=== PATIENT | male | born 1985 | race Caucasian/White ===

== ENCOUNTER 2021-06-06 11:31 | Emergency (ER) | payer OTHER, SELFPAY ==
[2021-06-06 12:32] VITALS: BP 121/76; PULSE 58; RESP 18; TEMP 36.6; O2SAT 96; BMI 22.4
[2021-06-06 12:59] LABS: Basophils Percent Auto 0.4 % (0-2); Eosinophils Percent Auto 0.5 % (0-4); Hematocrit 46.5 % (42.0-52.0); Hemoglobin 16.2 g/dl (14.0-18.0); Imm Gran Abs Auto 0.02 X10*3/uL (0.00-0.03); Imm Gran Pct Auto 0.3 % (0.0-0.4); Lymphocytes Absolute Auto 2.2 X10*3/uL (1.2-4.9); Lymphocytes Percent Auto 30.4 % (20-40); MANUAL DIFF FLAG NO; Mean Corpuscular HGB Conc 34.8 g/dl (31.0-36.0); Mean Corpuscular Hemoglobin 32.9 pg (27.0-33.0); Mean Corpuscular Volume 94.3 fL (80.0-98.0); Monocytes Absolute Auto 0.4 X10*3/uL (0.1-1.2); Monocytes Percent Auto 5.9 % (2-11); Neutrophils Absolute Auto 4.6 x10*3/uL (2.0-8.3); Neutrophils Percent Auto 62.5 % (45-73); Platelet Count 224 X10*3/uL (160-400); Red Blood Count 4.93 X10*6/uL (4.60-5.80); White Blood Count 7.3 X10*3/uL (4.8-10.8)
[2021-06-06 13:00] LABS: Appearance Urine CLEAR; Color Urine YELLOW; Glucose Urine UA NEG (NEG); Leukocyte Esterase Urine NEG (NEG); Nitrite Urine NEG (NEG); Urine Blood NEG (NEG); Urine Ketones NEG (NEG); Urine Protein NEG (NEG-TRACE)
[2021-06-06 13:16] LABS: Alanine Aminotransferase 57 U/L (0-40); Albumin Level 4.4 g/dL (3.5-5.0); Alkaline Phosphatase 67 U/L (39-117); Anion Gap 10 (12-20); Aspartate Amino Transferase 23 U/L (5-37); Bilirubin Total 0.7 mg/dL (0.0-1.0); Blood Urea Nitrogen 13 mg/dL (9-16); Calcium 9.5 mg/dL (8.4-10.2); Carbon Dioxide 30 mmol/L (22-29); Chloride 104 mmol/L (96-108); Creatinine Clr Calc Pharmacy 108.1; Estimated Glomerular Filt Rate > 60; Glucose Random 92 mg/dL (60-115); Lipase 23 U/L (8-78); Potassium 4.3 mmol/L (3.3-5.1); Sodium 140 mmol/L (135-145); Total Protein 6.8 g/dL (6.5-8.0)
--- NOTE | 2021-06-06 14:28 | ED.ABDPAIN ---
HPI - Abdominal Pain General Chief Complaint: Abdominal Pain Stated Complaint: R side abd pain Time Seen by Provider: 06/06/21 14:20 Source: patient Mode of arrival: ambulatory Limitations: no limitations History of Present Illness HPI narrative: 35-year-old male presents to the emergency room after having 1 week of right sided abdominal pain. He denies any urinary symptoms any falls or injuries he denies any surgeries in the past. He states he went to the walk-in clinic and was sent here. He states the pain has been constant it feels like herself after getting massage 1 week ago. He denies having this problem in the past. He states he has had normal appetite eating drinking having regular bowel movements. MD elicited complaint: abdominal pain Pertinent past history: none Related Data Allergies Allergy/AdvReac Type Severity Reaction Status Date / Time No Known Allergies Allergy Verified 06/06/21 12:32 Review of Systems Review of Systems Review of systems: General: Patient denies any fever chills recent illness or falls Musculoskeletal: Denies back pain or body aches or other injuries HEENT: denies headache, runny nose, ear pain Respiratory: denies shortness of breath, cough Cardiovascular: no chest pain or palpitations : denies dysuria, frequency Abdomen: no nausea vomiting denies abdominal pain Extremities: no swelling, no pain Skin: no diaphoresis Yes all other systems are reviewed and are negative Physical Exam Vital Signs: Vital Signs: Last Vital Signs Temp 97.9 F 06/06/21 12:32 Pulse 58 06/06/21 12:32 Resp 18 06/06/21 12:32 BP 121/76 06/06/21 12:32 Pulse Ox 96 06/06/21 12:32 BMI result Body Mass Index 22.4 General: Well-appearing well-nourished in no signs of distress HEENT: Normocephalic atraumatic Neck: No signs of JVD, no masses no tenderness or lymphadenopathy Cardiovascular: Regular rate and rhythm Respiratory: Clear to auscultation bilaterally Abdomen: Soft nontender no masses negative psoas sign no tenderness at McBurney's point Extremities: Normal pedal pulses no signs of edema Skin: Dry warm no rashes Back: No tenderness full ROM MDM - Abdominal Pain MDM Narrative Medical decision making narrative: Patient with abdominal pain I am unable to reproduce the pain or make it worse patient states his condition of crampy pain he is not taking for it. He has normal labs I offered the patient over for CT scan he states he feels like that is not warranted and feels comfortable going home. Differential Diagnosis Differential diagnosis: Likely abdominal pain Lab Data Result diagrams: 06/06/21 12:53 06/06/21 12:53 Labs: Lab Results 06/06/21 06/06/21 06/06/21 Range/Units 12:53 12:53 12:53 WBC 7.3 (4.8-10.8) X10*3/uL RBC 4.93 (4.60-5.80) X10*6/uL Hgb 16.2 (14.0-18.0) g/dl Hct 46.5 (42.0-52.0) % MCV 94.3 (80.0-98.0) fL MCH 32.9 (27.0-33.0) pg MCHC 34.8 (31.0-36.0) g/dl RDW 13.0 (11.0-16.0) % Plt Count 224 (160-400) X10*3/uL MPV 10.0 (9.4-12.4) fL Immature Gran % (Auto) 0.3 (0.0-0.4) % Neut % (Auto) 62.5 (45-73) % Lymph % (Auto) 30.4 (20-40) % [place] % (Auto) 5.9 (2-11) % Eos % (Auto) 0.5 (0-4) % Baso % (Auto) 0.4 (0-2) % Lymph # (Auto) 2.2 (1.2-4.9) X10*3/uL [place] # (Auto) 0.4 (0.1-1.2) X10*3/uL Eos # (Auto) 0.0 (0.0-0.4) X10*3/uL Baso # (Auto) 0.0 (0.0-0.2) X10*3/uL Abs Immat Gran (auto) 0.02 (0.00-0.03) X10*3/uL Absolute Neuts (auto) 4.6 (2.0-8.3) x10*3/uL Absolute Nucleated RBC 0.000 (0.0-0.012) X10*3/uL Nucleated RBC % (auto) 0.0 (0.0-0.2) /100WBC Sodium 140 (135-145) mmol/L Potassium 4.3 (3.3-5.1) mmol/L Chloride 104 (96-108) mmol/L Carbon Dioxide 30 H (22-29) mmol/L Anion Gap 10 L (12-20) BUN 13 (9-16) mg/dL Creatinine 1.06 (0.5-1.4) mg/dL Estim Creat Clear Calc 108.1 Estimated GFR > 60 Random Glucose 92 (60-115) mg/dL Calcium 9.5 (8.4-10.2) mg/dL Total Bilirubin 0.7 (0.0-1.0) mg/dL AST 23 (5-37) U/L ALT 57 H (0-40) U/L Alkaline Phosphatase 67 (39-117) U/L Total Protein 6.8 (6.5-8.0) g/dL Albumin 4.4 (3.5-5.0) g/dL Lipase 23 (8-78) U/L Urine Color YELLOW Urine Appearance CLEAR Urine pH 7.0 (5.0-8.0) Ur Specific [place] 1.010 (1.005-1.025) Urine Protein NEG (NEG-TRACE) MG/DL Urine Glucose (UA) NEG (NEG) MG/DL Urine Ketones NEG (NEG) MG/DL Urine Blood NEG (NEG) Urine Nitrite NEG (NEG) Ur Leukocyte Esterase NEG (NEG) Discharge Plan Discharge Clinical Impression: Abdominal pain Patient Disposition: Home, Self-Care Instructions: Abdominal Pain (ED) Additional Instructions: Please call follow-up with her doctor if you have worsening pain or any other concerns please do not hesitate to come back to the emergency department.
== END 2021-06-06 15:13 | disposition home or self-care (01) ==
LOC: HO.ED 14:42
PROVIDERS: Emergency Provider Student in an Organized Health Care Education/Training Program; PCP Internal Medicine
DX: R10.9 Unspecified abdominal pain (principal)
CPT/HCPCS: 36415; 80053; 81003; 83690; 85025; 99282; 99283

== ENCOUNTER → 2022-11-05 13:46 | Outpatient (BNVA) | payer OTHER, SELFPAY | PROVIDERS: PCP Internal Medicine; Visit Provider Internal Medicine Cardiovascular Disease | DX: R01.1 Cardiac murmur, unspecified (principal) | CPT/HCPCS: 93005 ==

== ENCOUNTER → 2022-11-25 14:54 | Outpatient (REF) | payer OTHER, SELFPAY ==
--- NOTE | 2022-11-25 14:59 | CA_ITS ---
Transthoracic Echocardiogram Patient (Last, First, Middle): Gerson Christian R Gender: Male Date of : 1985 Age: 37 Procedure Date: 11/25/2022 Procedure Type: Transthoracic Echocardiogram Location: OP Height: 187.96 cm Weight: 77.11 kg BSA: 2.03 m2 Heart Rate: 54 bpm BP: 110 / 75 mmHg Ostomy Rn: LILLIANA Referring MD: Mitch Ruiz MD Symptoms: R01.1 - Cardiac murmur, unspecified Study Quality: Fair ECG Rhythm: Bradycardia Conclusions: - The left ventricular systolic function is normal. The calculated ejection fraction is 60% by biplane method. - There is a bicuspid aortic valve. There is mild aortic valve stenosis. - There is mild dilatation of the ascending aorta measuring 4.30 cm. Findings Left Ventricle Normal left ventricular cavity size. There is normal left ventricular wall thickness. The left ventricular systolic function is normal. The calculated ejection fraction is 60% by biplane method. There is no evidence of regional wall motion abnormalities. Diastolic function is normal for age. Right Ventricle Normal right ventricular cavity size and systolic function. Atria Both atria are normal in size. Aortic Valve There is a bicuspid aortic valve. There is mild aortic valve stenosis. There is no aortic valve regurgitation. Mitral Valve The mitral valve appears normal. There is trace mitral valve regurgitation. There is no mitral valve stenosis. Pulmonic Valve There is trace pulmonic valve regurgitation. Tricuspid Valve Normal tricuspid valve structure. There is trace tricuspid valve regurgitation. There is no evidence of pulmonary hypertension. Great Vessels The aortic arch is normal in size. There is mild dilatation of the ascending aorta measuring 4.30 cm. Venous The inferior vena cava is mildly dilated and collapses greater than 50% with inspiration. Pericardium/Pleural There is no evidence of pericardial effusion. Prior Study Comparison No prior study available for comparison. Measurements 2D Linear Measurements IVSd: 0.79 0.6-0.9/0.6-1.0 cm LVIDd: 4.83 3.9-5.3/4.2-5.9 cm LVIDd Index: 2.38 2.4-3.2/2.2-3.1 cm/m2 LVIDs: 3.42 2.0-3.6 cm LVPWd: 0.85 0.7-1.1 cm LA Diam: 3.40 2.7-3.8/3.0-4.0 cm LAIDs Index: 1.67 1.5-2.3 cm/m2 LV Mass: 163.84 67-162/88-224 g LV Mass Index: 80.71 43-95/49-115 g/m2 LVOT Diam: 1.90 3.0+(-)1.3 cm 2D Systolic Function EF 4C: 58.10 >55% EF 2C: 61.10 >55% EF BiP: 60.30 >55% Mitral Valve MV Pk E: 0.64 MV PK A: 0.70 MV Decel Time: 206.00 E/A: 0.90 E'Lateral: 10.60 E'Medial: 8.05 E/E' Med: 7.90 E/E' Lat: 6.00 PHT: 60.00 MVA PHT: 3.67 Decel [place]: 3.11 Aortic Valve AoV Pk Garrett: 2.24 AoV Mn Garrett: 1.63 AoV VTI: 0.53 AoV Pk Grad: 20.00 Aov Mn Grad: 12.00 ROXY Cont.VTI: 1.22 LVOT LVOT Pk Garrett: 1.01 LVOT Mn Garrett: 0.73 LVOT VTI: 0.23 LVOT Pk Grad: 4.00 LVOT Mn Grad: 2.00 LVOT Diam: 1.90 LVOT Area: 2.84 Diastolic Function MV Pk E: 0.64 MV Pk A: 0.70 E/A: 0.90 E'Medial: 8.05 E/E' Med: 7.90 E' Laterial: 10.60 E/E' Lat: 6.00 Right Ventricle TAPSE (mm): 27.70 TVS' Garrett: 12.50 Tricuspid Valve TR Pk Garrett: 1.71 TR Pk Grad: 12.00 RA Press: 8.00 RVSP: 20.00 Great Vessels Aorta Sinus of Valsalva: 3.10 2.0-3.5 cm Ao Asc: 4.30 2.1-3.4 cm Ao Arch: 3.00 Pulmonary Valve PV Pk Garrett: 1.44 Peak PV Grad: 8.00 Updated in Other Vendor System with Status of Final Conner Underwood MD electronically signed on 11/26/2022 12:17:25 PM with status of Final
== END ==
LOC: HO.CARD 14:54
PROVIDERS: PCP Internal Medicine; Visit Provider Internal Medicine Cardiovascular Disease
DX: R01.1 Cardiac murmur, unspecified (principal)
CPT/HCPCS: 93306

== ENCOUNTER 2022-12-24 07:39 | Outpatient (REF) | payer OTHER, SELFPAY ==
--- NOTE | ~2022-12-24 | CT_ITS ---
EXAMINATION: CT ANGIOGRAM CHEST CLINICAL INFORMATION: Ascending aortic aneurysm COMPARISON: None. TECHNIQUE: Multiple axial images were obtained through the chest after the administration of 70 mL of intravenous Omnipaque 350. Images were evaluated on independent dedicated 3-D workstation and 3-D images were reconstructed with concurrent radiologist supervision and subsequently interpreted. This CT examination was performed using dose optimization techniques as appropriate, variously including the following: *Automated exposure control *Adjustment of mA and/or kV according to patient size (this includes techniques or standardized protocols for targeted exams where dose is matched to indication/reason for exam; i.e. extremities or head) *Use of iterative reconstruction technique DLP: 157 mGy-cm FINDINGS: VASCULAR FINDINGS: Heart: Normal in size. Bicuspid aortic valve. Coronary artery calcifications not present. 4 vessel arch. Aorta: Measurement of the ascending aorta somewhat limited due to patient artifact. Within the nonartifactual segment of the ascending aorta, at the level of the main pulmonary artery, the ascending aortic diameter is 3.7 x 3.5 cm. Aortic arch is approximately 2.2 cm. The descending thoracic aortic diameter is 1.6 cm. No dissection or penetrating atheromatous ulcer. NONVASCULAR FINDINGS: Thyroid Gland: The visualized thyroid gland is normal. Lymph Nodes: No supraclavicular, axillary, mediastinal or hilar lymphadenopathy is identified. Airways: The trachea and central bronchi are normal. Lungs: No airspace consolidation. No suspicious nodules or masses. Pleura: No pleural effusion. No pneumothorax. Upper Abdomen: The visualized upper abdomen is unremarkable. Soft Tissues/Musculoskeletal: No acute fracture or focal osseous lesion. CT/CT angio chest aorta IMPRESSION: 1. Borderline ascending aortic aneurysm. 2. Bicuspid aortic valve. Normal aortic diameters (in millimeters) Ascending aorta: 31+0.16 x age. Descending aorta: 21+0.16 x age. Reference: [employer] Cardiovascular J 2005; 40 (3): 175-178 Fleischner guidelines were followed.
[2022-12-24] MEDS: iohexoL 350 MG/ML 100 ML INFUS..BTL IV (08:46)
== END 2022-12-24 07:40 | disposition home or self-care (01) ==
LOC: HO.CT 07:39
PROVIDERS: PCP Internal Medicine; Visit Provider Internal Medicine Cardiovascular Disease
DX: I71.20 Thoracic aortic aneurysm, without rupture, unspecified (principal)
CPT/HCPCS: 71275; Q9967

== ENCOUNTER → 2023-12-10 07:54 | Outpatient (REF) | payer OTHER, SELFPAY ==
--- NOTE | 2023-12-10 07:57 | CA_ITS ---
Transthoracic Echocardiogram Patient (Last, First, Middle): Gerson Christian R Gender: Male Date of : 1985 Age: 38 Procedure Date: 12/10/2023 Procedure Type: Transthoracic Echocardiogram Location: OP Height: 185.42 cm Weight: 79.38 kg BSA: 2.03 m2 Heart Rate: bpm BP: 106 / 70 mmHg Metal Hardener: BILL Referring MD: Mitch Ruiz MD Symptoms: I71.20 - Thoracic aortic aneurysm, without rupture, unspecified Study Quality: Fair Conclusions: - 1. Normal LV ejection fraction of 60 65% 2. Bicuspid aortic valve with [id number] aortic stenosis 3. Normal RV systolic pressure 4. Mildly dilated ascending aorta at 4.3 cm 5. No gross pericardial effusion Findings Left Ventricle Normal left ventricular size, thickness, and systolic function. The visually estimated ejection fraction is between 60-65%. Spectral Doppler is indicative of a normal filling pattern. Right Ventricle Normal right ventricular cavity size and systolic function. Atria Both atria are normal in size. Interatrial shunt cannot be excluded. Aortic Valve There is a bicuspid aortic valve. There is mild to moderate aortic valve stenosis. There is no aortic valve regurgitation. Mitral Valve Normal mitral valve structure and function. There is trace mitral valve regurgitation. There is no mitral valve stenosis. Pulmonic Valve The pulmonic valve is likely normal. Tricuspid Valve Normal tricuspid valve structure. There is trace tricuspid valve regurgitation. The right ventricular systolic pressure is normal. The right ventricular systolic pressure is 17 mmHg. Normal right atrial pressure. There is no evidence of pulmonary hypertension. Great Vessels The pulmonary artery was not well visualized. There is mild dilatation of the ascending aorta measuring 4.30 cm. Venous The inferior vena cava is normal in size and collapses greater than 50% with inspiration. Pericardium/Pleural There is no evidence of pericardial effusion. Prior Study Comparison Changes noted compared to prior study dated: 11/25/2022. Aortic stenosis is marginally worse Measurements 2D Linear Measurements IVSd: 0.80 0.6-0.9/0.6-1.0 cm LVIDd: 4.48 3.9-5.3/4.2-5.9 cm LVIDd Index: 2.21 2.4-3.2/2.2-3.1 cm/m2 LVIDs: 2.95 2.0-3.6 cm LVPWd: 0.90 0.7-1.1 cm LA Diam: 3.20 2.7-3.8/3.0-4.0 cm LAIDs Index: 1.58 1.5-2.3 cm/m2 LV Mass: 151.36 67-162/88-224 g LV Mass Index: 74.56 43-95/49-115 g/m2 LVOT Diam: 2.00 3.0+(-)1.3 cm 2D Systolic Function EF 4C: 66.70 >55% EF 2C: 62.80 >55% EF BiP: 64.30 >55% Mitral Valve MV Pk E: 0.57 MV PK A: 0.53 MV Decel Time: 318.00 E/A: 1.10 E'Lateral: 11.40 E'Medial: 7.40 E/E' Med: 7.60 E/E' Lat: 5.00 PHT: 93.00 MVA PHT: 2.37 Decel [place]: 1.78 Aortic Valve AoV Pk Garrett: 2.34 AoV Mn Garrett: 1.65 AoV VTI: 0.53 AoV Pk Grad: 22.00 Aov Mn Grad: 13.00 ROXY Cont.VTI: 1.31 LVOT LVOT Pk Garrett: 1.06 LVOT Mn Garrett: 0.68 LVOT VTI: 0.22 LVOT Pk Grad: 4.00 LVOT Mn Grad: 2.00 LVOT Diam: 2.00 LVOT Area: 3.14 Diastolic Function MV Pk E: 0.57 MV Pk A: 0.53 E/A: 1.10 E'Medial: 7.40 E/E' Med: 7.60 E' Laterial: 11.40 E/E' Lat: 5.00 Right Ventricle TAPSE (mm): 24.00 TVS' Garrett: 11.30 Tricuspid Valve TR Pk Garrett: 1.51 TR Pk Grad: 9.00 RA Press: 8.00 RVSP: 17.00 Great Vessels Aorta Ao Asc: 4.30 2.1-3.4 cm Ao Arch: 2.60 Updated in Other Vendor System with Status of Final Mitch Ruiz MD electronically signed on 12/10/2023 9:43:14 AM with status of Final
== END ==
LOC: HO.CARD 07:54
PROVIDERS: PCP Internal Medicine; Visit Provider Internal Medicine Cardiovascular Disease
DX: I71.20 Thoracic aortic aneurysm, without rupture, unspecified (principal)
CPT/HCPCS: 93306

== ENCOUNTER → 2023-12-10 07:57 | Outpatient (BNV) | payer OTHER, SELFPAY | PROVIDERS: PCP Internal Medicine; Visit Provider Internal Medicine Cardiovascular Disease | DX: Q23.0 Congenital stenosis of aortic valve (principal) | CPT/HCPCS: 93303; 93320; 93325 ==

== ENCOUNTER 2024-08-08 09:51 | Emergency (ER) | payer OTHER, SELFPAY ==
--- NOTE | ~2024-08-08 | CT_ITS ---
CLINICAL HISTORY: R ABD groin pain CT ABDOMEN AND PELVIS WITHOUT CONTRAST Comparison: None Findings: The lung bases are clear. Small irregular dysplastic right kidney with compensatory hypertrophy of the left kidney. No hydronephrosis, significant perinephric edema or urolithiasis. Gallbladder is contracted. No large calcified gallstone. No acute abnormalities in the remaining unenhanced solid organs. No AAA. No bowel obstruction, pneumoperitoneum, or pneumatosis. No ascites or significant mesenteric edema. No significant paracolic edema. Pelvic contents unremarkable. Normal appendix. No acute fracture. There is a nonspecific 2.4 cm lucent lesion in the left acetabulum with thin well defined sclerotic borders and overall nonaggressive appearance. IMPRESSION: 1. No obstructive or acute inflammatory changes in the gastrointestinal and genitourinary tracts. 2. No urolithiasis. Atrophic dysplastic right kidney. This document has been electronically signed by: Millicent Whitman DO on 08/08/2024 13:21:32
[2024-08-08 10:06] VITALS: BP 128/80; PULSE 83; RESP 20; TEMP 36.8; O2SAT 99; BMI 25.0
[2024-08-08 10:33] LABS: MANUAL DIFF FLAG NO
[2024-08-08 10:34] LABS: Basophils Percent Auto 0.5 % (0-2); Eosinophils Absolute Auto 0.1 X10*3/uL (0.0-0.4); Hematocrit 46.4 % (42.0-52.0); Hemoglobin 16.7 g/dl (14.0-18.0); Imm Gran Abs Auto 0.02 X10*3/uL (0.00-0.03); Imm Gran Pct Auto 0.2 % (0.0-0.4); Lymphocytes Absolute Auto 2.6 X10*3/uL (1.2-4.9); Lymphocytes Percent Auto 30.5 % (20-40); Mean Corpuscular Hemoglobin 33.4 pg (27.0-33.0); Mean Corpuscular Volume 92.8 fL (80.0-98.0); Mean Platelet Volume 10.3 fL (9.4-12.4); Monocytes Absolute Auto 0.6 X10*3/uL (0.1-1.2); Monocytes Percent Auto 7.1 % (2-11); Neutrophils Absolute Auto 5.1 x10*3/uL (2.0-8.3); Neutrophils Percent Auto 60.7 % (45-73); Platelet Count 237 X10*3/uL (160-400); Red Cell Distribution Width 13.1 % (11.0-16.0); White Blood Count 8.4 X10*3/uL (4.8-10.8)
[2024-08-08 10:35] LABS: Appearance Urine Clear; Color Urine Dark Yellow; Glucose Urine UA Negative (Negative); Leukocyte Esterase Urine Negative (Negative); Nitrite Urine Negative (Negative); Urine Blood Negative (Negative); Urine Ketones Trace mg/dL (Negative); Urine Protein Negative (Neg-Trace)
[2024-08-08 10:51] LABS: Alanine Aminotransferase 17 U/L (0-40); Albumin Level 4.3 g/dL (3.5-5.0); Alkaline Phosphatase 72 U/L (39-117); Anion Gap 13 (12-20); Aspartate Amino Transferase 17 U/L (5-37); Bilirubin Direct 0.1 mg/dL (0.0-0.5); Bilirubin Total 0.4 mg/dL (0.0-1.0); Blood Urea Nitrogen 18 mg/dL (9-16); Carbon Dioxide 26 mmol/L (22-29); Chloride 108 mmol/L (96-108); Creatinine Clr Calc Pharmacy 110.9; Estimated Glomerular Filt Rate > 60; Glucose Random 116 mg/dL (60-115); Lipase 189 U/L (8-78); Potassium 4.6 mmol/L (3.3-5.1); Sodium 142 mmol/L (135-145); Total Protein 7.5 g/dL (6.5-8.0)
--- OUTSIDE RECORDS SUMMARY | 2024-08-08 11:08 | XMS_ITS | Clinical Summary ---
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 Family History Medical History Relation Name Comments No Known Problems Brother No Known Problems Father No Known Problems Mother Relation Name Status Comments Brother Alive Father Alive Mother Alive Social History Tobacco Use Types Packs/Day Years Used Date Smoking Tobacco: Every Day Cigarettes 1 21 Started: 07/21/2003 Smokeless Tobacco: Never Alcohol Use Standard Drinks/Week Comments Yes 0 (1 standard drink = 0.6 oz pur e alcohol) Sex and Gender Information Value Date Recorded Sex Assigned at Not on file Legal Sex Male 12:44 PM EST Gender Identity Not on file Sexual Orientation Not on file Obstetrics History Plan of Treatment Health Maintenance Due Date Last Done Comments DTaP,Tdap,and Td Vaccines (1 - Tdap) 2003 Hepatitis B Vaccines (1 of 3 - 19+ 3-dose series) 2003 COVID-19 Vaccine (2023-2 5 season) 2024 Influenza Vaccine (#1) 2024 HIB Vaccines Aged Out No longer eligi ble based on patient's age to complete this topic HPV Vaccines Aged Out No longer eligi ble based on patient's age to complete this topic Hepatitis A Vaccines Aged Out No long er eligible based on patient's age to complete this topic IPV Vaccines Aged Out No longer eligi ble based on patient's age to complete this topic MMR Vaccines Aged Out No longer eligi ble based on patient's age to complete this topic Meningococcal ACWY Vaccine Aged Out N o longer eligible based on patient's age to complete this topic Meningococcal B Vacine Aged Out No lo nger eligible based on patient's age to complete this topic Pneumococcal Vaccine: Pediat rics (0 to 5 Years) and At-Risk Patients (6 to 64 Years) Aged Out No longer eligible b ased on patient's age to complete this topic RSV Immunization Patients Un viv 20 months Aged Out No longer eligible b ased on patient's age to complete this topic Varicella Vaccines Aged Out No longer eligible based on patient's age to complete this topic Care Teams Director Of Logistics Relationship Specialty Start Date End Date Mick Rebolledo MD [address] [address] PCP - General Internal Medicine 01/25/20
--- OUTSIDE RECORDS SUMMARY | 2024-08-08 11:08 | XMS_ITS | Encounter Summary ---
Author Organization [facility] Address [address] [place] [address] Care Team Providers Care House Shorer Name Role Phone Mick Rebolledo MD Primary Care Provider [phone] Encounter Details Date Type Department Care Team (Late st Contact Info) Description 08/15/2023 Scanned Document [facility] Department of Internal Medicine [place] [address] [place] [phone] Mick Rebolledo MD [address] [place] [address] Social History Tobacco Use Types Packs/Day Years Used Date Smoking Tobacco: Never Assessed Sex and Gender Information Value Date Recorded Sex Assigned at Male 07/17/2022 4:30 PM EST Gender Identity Male 07/17/2022 4:30 PM EST Sexual Orientation Heterosexual (straight) 07/17 4:30 PM EST documented as of this encounter Plan of Treatment Not on file documented as of this encounter Visit Diagnoses Not on filedocumented in this encounter Care Teams House Shorer Relationship Specialty Start Date End Date Mick Rebolledo MD [address] [place] [address] PCP - General documented as of this encounter
--- OUTSIDE RECORDS SUMMARY | 2024-08-08 11:08 | XMS_ITS | Encounter Summary ---
Author Organization [facility] Address [address] [place] [address] Care Team Providers Care Production Honing Machine Operator Name Role Phone Mick Rebolledo MD Primary Care Provider [phone] Encounter Details Date Type Department Care Team (Late st Contact Info) Description 08/15/2023 Scanned Document [facility] Department of Internal Medicine [place] [address] [place] [address] Mick Rebolledo MD [address] [place] [address] Social History Tobacco Use Types Packs/Day Years [...] on filedocumented in this encounter Care Teams Production Honing Machine Operator Relationship Specialty Start Date End Date Mick Rebolledo MD [address] [place] [address] PCP - General documented as of this encounter
--- OUTSIDE RECORDS SUMMARY | 2024-08-08 11:08 | XMS_ITS | Encounter Summary ---
Author Organization [facility] Address [address] [place] [address] Care Team Providers Care Bi Lead Name Role Phone Mick Rebolledo MD Primary Care Provider [phone] Encounter Details Date Type Department Care Team (Late st Contact Info) Description 07/24/2023 Scanned Document [facility] Department of Internal Medicine [place] [address] [place] [address] Mick Rebolledo MD [address] [place] [address] Social History Tobacco Use Types Packs/Day Years [...] on filedocumented in this encounter Care Teams Bi Lead Relationship Specialty Start Date End Date Mick Rebolledo MD [address] [place] [address] PCP - General documented as of this encounter
--- OUTSIDE RECORDS SUMMARY | 2024-08-08 11:08 | XMS_ITS | Encounter Summary ---
Author Organization [facility] Address [address] [place] [address] Care Team Providers Care Molder Pipe Covering Name Role Phone Mick Rebolledo MD Primary Care Provider [phone] Encounter Details Date Type Department Care Team (Late st Contact Info) Description 12/11/2022 Scanned Document [facility] Department of Internal Medicine [place] [address] [place] [address] Mick Rebolledo MD [address] [place] [address] Social History Tobacco Use Types Packs/Day Years [...] on filedocumented in this encounter Care Teams Molder Pipe Covering Relationship Specialty Start Date End Date Mick Rebolledo MD [address] [place] [address] PCP - General documented as of this encounter
--- OUTSIDE RECORDS SUMMARY | 2024-08-08 11:08 | XMS_ITS | Encounter Summary ---
Author Organization [facility] Address [address] [place] [address] Care Team Providers Care Open Soaper Tender Name Role Phone Mick Rebolledo MD Primary Care Provider [phone] Encounter Details Date Type Department Care Team (Late st Contact Info) Description 08/06/2023 Scanned Document [facility] Department of Internal Medicine [place] [address] [place] [address] Mick Rebolledo MD [address] [place] [address] Social History Tobacco Use Types Packs/Day Years [...] on filedocumented in this encounter Care Teams Open Soaper Tender Relationship Specialty Start Date End Date Mick Rebolledo MD [address] [place] [address] PCP - General documented as of this encounter
--- OUTSIDE RECORDS SUMMARY | 2024-08-08 11:08 | XMS_ITS | Encounter Summary ---
Author Organization [facility] Address [address] [place] [address] Care Team Providers Care Furnace Clerk Name Role Phone Mick Rebolledo MD Primary Care Provider [phone] Encounter Details Date Type Department Care Team (Late st Contact Info) Description 07/29/2023 Scanned Document [facility] Department of Internal Medicine [place] [address] [place] [address] Mick Rebolledo MD [address] [place] [address] Social History Tobacco Use Types Packs/Day Years [...] on filedocumented in this encounter Care Teams Furnace Clerk Relationship Specialty Start Date End Date Mick Rebolledo MD [address] [place] [address] PCP - General documented as of this encounter
--- OUTSIDE RECORDS SUMMARY | 2024-08-08 11:08 | XMS_ITS | Encounter Summary ---
Author Organization [facility] Address [address] [place] [address] Care Team Providers Care Trade Show Manager Name Role Phone Mick Rebolledo MD Primary Care Provider Encounter Details Date Type Department Care Team (Late st Contact Info) Description 12/05/2022 Scanned Document [facility] Department of Internal Medicine [place] [address] [place] [address] Yvette Woods, PIZZ[employer]OOK [address] [place] [id number] Social History Tobacco Use Types Packs/Day Years [...] on filedocumented in this encounter Care Teams Trade Show Manager Relationship Specialty Start Date End Date Mick Rebolledo MD [address] [place] [address] PCP - General documented as of this encounter
--- OUTSIDE RECORDS SUMMARY | 2024-08-08 11:08 | XMS_ITS | Encounter Summary ---
Author Organization [facility] Address [address] [place] [address] Care Team Providers Care Rn Ante Partum Name Role Phone Mick Rebolledo MD Primary Care Provider [phone] Encounter Details Date Type Department Care Team (Late st Contact Info) Description 07/31/2023 Scanned Document [facility] Department of Internal Medicine [place] [address] [place] [address] Mick Rebolledo MD [address] [place] [address] Social History Tobacco Use Types Packs/Day Years [...] on filedocumented in this encounter Care Teams Rn Ante Partum Relationship Specialty Start Date End Date Mick Rebolledo MD [address] [place] [address] PCP - General documented as of this encounter
--- OUTSIDE RECORDS SUMMARY | 2024-08-08 11:08 | XMS_ITS | Clinical Summary ---
Author Organization [facility] Address [address] [place] [address] Care Team Providers Care Nurse Healthcare Manager Name Role Phone Mick Rebolledo MD Primary Care Provider Unavail able Allergies No known active allergies Medications No known medications Active Problems Problem Noted Date Diagnosed Date Synovitis of right ankle 02/03/2020 Pain and swelling of right ankle 01/20/2020 Osteochondral defect of talus 01/20/2020 Right foot pain 07/21/2018 Numbness and tingling of right lower extremity 0 07/21/2018 Family History Medical History Relation Name Comments No Sig Med Hx Brother No Sig Med Hx Father No Sig Med Hx Mother Relation Name Status Comments Brother Alive Father Alive Mother Alive Social History Tobacco Use Types Packs/Day Years Used Date Smoking Tobacco: Every Day Cigarettes 1 Started: 07/21/2003 Smokeless Tobacco: Never Alcohol Use Standard Drinks/Week Comments Yes 0 (1 standard drink = 0.6 oz pur e alcohol) socially Sex and Gender Information Value Date Recorded Sex Assigned at Male 07/21/2018 1:32 PM EST Gender Identity Male 07/21/2018 1:32 PM EST Sexual Orientation Not on file Job Start Date Occupation Industry Not on file Not on file Not on file Last Filed Vital Signs Vital Sign Reading Time Taken Comments Blood Pressure - - Pulse - - Temperature 36.7 ??C (98 ??F) 02/25/2020 8:08 AM EDT Respiratory Rate - - Oxygen Saturation - - Inhaled Oxygen Concentration - - Weight 79.4 kg (175 lb) 02/25/2020 8:08 AM EDT Height 185.4 cm (6' 1 ) 02/25/2020 8:08 AM EDT Body Mass Index 23.09 02/25/2020 8:08 AM EDT Plan of Treatment Health Maintenance Due Date Last Done Comments Hepatitis B Vaccines (1 of 3 - 3-dose series) 1984 Hepatitis C Screening 1984 COVID-19 Vaccine (#1) 1984 Pneumococcal Vaccine (1 of 2 - PCV) 1990 Depression Screening 1996 Preventative Health Evaluation 2002 Tobacco Cessation Counseling 2002 DTap / Tdap / Td (1 - Tdap) 2003 Influenza Vaccine (#1) 2024 RSV Ped < 20 months Aged Out No longe r eligible based on patient's age to complete this topic Care Teams Nurse Healthcare Manager Relationship Specialty Start Date End Date Mick Rebolledo MD PCP - General Internal Medicine 01/25/20
--- OUTSIDE RECORDS SUMMARY | 2024-08-08 11:08 | XMS_ITS | Encounter Summary ---
Author Organization [facility] Address [address] [place] [address] Care Team Providers Care Ophthalmic Surgeon Name Role Phone Mick Rebolledo MD Primary Care Provider [phone] Encounter Details Date Type Department Care Team (Late st Contact Info) Description 07/24/2023 Scanned Document [facility] Department of Internal Medicine [place] [address] [place] [address] Mick Rebolledo MD [address] [place] [address] Social History Tobacco Use Types Packs/Day Years [...] on filedocumented in this encounter Care Teams Ophthalmic Surgeon Relationship Specialty Start Date End Date Mick Rebolledo MD [address] [place] [address] PCP - General documented as of this encounter
--- OUTSIDE RECORDS SUMMARY | 2024-08-08 11:08 | XMS_ITS | Clinical Summary ---
Author Organization [facility] Address [address] [place] [id number] Care Team Providers Care Crane Operator Cab Name Role Phone Mick Rebolledo MD Primary Care Provider [phone] Allergies No known active allergies Medications No known medications Active Problems Problem Noted Date Diagnosed Date Murmur, cardiac 08/13/2022 Vitamin D deficiency 08/09/2022 Chronic back pain 08/09/2022 Family History Medical History Relation Name Comments Cancer Father Relation Name Status Comments Father Social History Tobacco Use Types Packs/Day Years Used Date Smoking Tobacco: Never Assessed Sex and Gender Information Value Date Recorded Sex Assigned at Male 07/17/2022 4:30 PM EST Gender Identity Male 07/17/2022 4:30 PM EST Sexual Orientation Heterosexual (straight) 07/17 4:30 PM EST Last Filed Vital Signs Vital Sign Reading Time Taken Comments Blood Pressure 108/68 07/20/2023 3:50 PM EST Pulse 75 07/20/2023 3:50 PM EST Temperature 36.4 ??C (97.6 ??F) 08/09/2022 10:[address] Respiratory Rate - - Oxygen Saturation 96% 07/20/2023 3:50 PM EST Inhaled Oxygen Concentration - - Weight 85.7 kg (189 lb) 07/20/2023 3:50 PM EST Height 185.4 cm (6' 1 ) 07/20/2023 3:50 PM EST Body Mass Index 24.94 07/20/2023 3:50 PM EST Plan of Treatment Health Maintenance Due Date Last Done Comments Hepatitis C Virus Screening 1984 HIV Screening 1997 DTaP/Tdap/Td Vaccines (1 - Tdap) 2003 Hepatitis B Vaccines (1 of 3 - 19+ 3-dose series) 2003 Pneumococcal Vaccine: Pediat john (0-5 Years) and At-Risk Patients (6 to 49 Years) (1 of 2 - PCV) 2003 Influenza Vaccine 01/01/2024 COVID-19 Vaccine (2023-2 5 season) 2024 HPV Vaccines Aged Out No longer eligi ble based on patient's age to complete this topic Care Teams Crane Operator Cab Relationship Specialty Start Date End Date Mick Rebolledo MD [address] [place] [address] PCP - General
--- OUTSIDE RECORDS SUMMARY | 2024-08-08 11:08 | XMS_ITS | Encounter Summary ---
Author Organization [facility] Address [address] [place] [address] Care Team Providers Care Special Trackwork Blacksmith Name Role Phone Mick Rebolledo MD Primary Care Provider Encounter Details Date Type Department Care Team (Late st Contact Info) Description 09/11/2022 Scanned Document [facility] Department of Internal Medicine [place] [address] [place] [address] Mick Rebolledo MD [address] [place] [address] Social History Tobacco Use Types Packs/Day Years [...] on filedocumented in this encounter Care Teams Special Trackwork Blacksmith Relationship Specialty Start Date End Date Mick Rebolledo MD [address] [place] [address] PCP - General documented as of this encounter
--- OUTSIDE RECORDS SUMMARY | 2024-08-08 11:08 | XMS_ITS ---
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
--- OUTSIDE RECORDS SUMMARY | 2024-08-08 11:08 | XMS_ITS | Encounter Summary ---
Author Organization [facility] Address [address] [place] [address] Care Team Providers Care Society Reporter Name Role Phone Mick Rebolledo MD Primary Care Provider [phone] Encounter Details Date Type Department Care Team (Late st Contact Info) Description 11/01/2022 Scanned Document [facility] Department of Internal Medicine [place] [address] [place] [address] Yvette Woods, COMMUNITY CENTER DIRECTOR [address] [place] [phone] Social History Tobacco Use Types Packs/Day Years [...] on filedocumented in this encounter Care Teams Society Reporter Relationship Specialty Start Date End Date Mick Rebolledo MD [address] [place] [address] PCP - General documented as of this encounter
--- OUTSIDE RECORDS SUMMARY | 2024-08-08 11:08 | XMS_ITS | Encounter Summary ---
Author Organization [facility] Address [address] [place] [address] Care Team Providers Care Supervisor Wool Shearing Name Role Phone Mick Rebolledo MD Primary Care Provider [phone] Encounter Details Date Type Department Care Team (Late st Contact Info) Description 10/10/2022 Scanned Document [facility] Department of Internal Medicine [place] [address] [place] [address] Mick Rebolledo MD [address] [place] [address] Social History Tobacco Use Types Packs/Day Years [...] on filedocumented in this encounter Care Teams Supervisor Wool Shearing Relationship Specialty Start Date End Date Mick Rebolledo MD [address] [place] [address] PCP - General documented as of this encounter
--- OUTSIDE RECORDS SUMMARY | 2024-08-08 11:08 | XMS_ITS | Encounter Summary ---
Author Organization [facility] Address [address] [place] [address] Care Team Providers Care Assistant Prosecuting Attorney Name Role Phone Mick Rebolledo MD Primary Care Provider [phone] Encounter Details Date Type Department Care Team (Late st Contact Info) Description 11/12/2022 Scanned Document [facility] Department of Internal Medicine [place] [address] [place] [address] Yvette Woods, TANGIBLE PERSONAL PROPERTY APPRAISER [address] [place] [phone] Social History Tobacco Use Types Packs/Day Years [...] on filedocumented in this encounter Care Teams Assistant Prosecuting Attorney Relationship Specialty Start Date End Date Mick Rebolledo MD [address] [place] [address] PCP - General documented as of this encounter
--- OUTSIDE RECORDS SUMMARY | 2024-08-08 11:08 | XMS_ITS | Encounter Summary ---
Author Organization [facility] Address [address] [place] [address] Care Team Providers Care Testing Manager Name Role Phone Mick Rebolledo MD Primary Care Provider Encounter Details Date Type Department Care Team (Late st Contact Info) Description 08/06/2023 Scanned Document [facility] Department of Internal Medicine [place] [address] [place] [address] Mick Rebolledo MD [address] [place] [address] Social History Tobacco Use Types Packs/Day Years [...] on filedocumented in this encounter Care Teams Testing Manager Relationship Specialty Start Date End Date Mick Rebolledo MD [address] [place] [address] PCP - General documented as of this encounter
--- NOTE | 2024-08-08 11:43 | ED.ABDPAIN ---
HPI - Abdominal Pain General Chief Complaint: Abdominal Pain Stated Complaint: hip to groin pain Time Seen by Provider: 08/08/24 10:58 Source: patient Mode of arrival: ambulatory Limitations: no limitations History of Present Illness ED Provider: Debi Ryan NP HPI narrative: Patient is a 39-year-old male who presents emergency department for evaluation. He reports over the past few days he has been experiencing right lower quadrant abdominal pain that radiates down into the groin. Has had associated urinary frequency and pressure but denies hematuria. He does admit that he had a recent physical and was told that there was trace blood in his urine though he did not visibly see this to the eye. Does admit that he has experienced a similar pain over the past few months, states it has been intermittent in nature. But over the past few days he has had varying intensity and feeling worse than he has experienced previously. He does admit that he has also experienced right lower back pain intermittently, at times it was radiating to his leg so he assumed this was something muscular. He denies fevers, chills, chest pain, nausea, vomiting, hematemesis, diarrhea, constipation, hematochezia, melena, dysuria. denies testicular pain/urethral discharge or scrotal swelling. Related Data Home Medications ?Medication ?Instructions ?Recorded ?Confirmed No Known Home Meds 11/05/22 11/05/22 Allergies Allergy/AdvReac Type Severity Reaction Status Date / Time No Known Allergies Allergy Verified 08/08/24 10:09 Review of Systems Review of Systems Yes all other systems are reviewed and are negative PMFSH Past Medical History Attestation statement: The following information was validated with the patient. Source: old records reviewed Surgical History Hx of toe surgery Family History Family History Father No problems noted. Mother No problems noted. Social History Social History Patient Tobacco Use Status: Current everyday Tobacco user Advance Directives: No Advance Directives Information Provided: Yes Do you have a plan to hurt others: No Plan Physical Exam ED Vital Signs: Vital Signs - 24 hr 08/08/24 10:06 08/08/24 12:48 Temperature 98.3 F 97.7 F Pulse Rate 83 47 L Respiratory Rate 20 16 Blood Pressure 128/80 99/64 Pulse Oximetry 99 97 Oxygen Delivery Method Room Air Room Air BMI result Body Mass Index 25.0 Appearance: Alert.?Oriented to person, place and time. No acute distress.?Normal affect.?? Neck: Normal inspection.? Neck supple.?? CVS: Heart sounds normal. Normal heart rate and rhythm.? Pulses normal.?? Respiratory: No respiratory distress.? Lung sounds clear to auscultation bilaterally?? Abdomen: Soft with diffuse mild tenderness RLQ ABD. No rebound tenderness at McBurney's point. Negative psoas sign. Negative Rovsing sign. Negative Bell sign. No CVAT. Normoactive bowel sounds. No pulsatile mass.?? Skin: Skin warm and dry.? Normal skin color.? Extremities: No lower extremity edema.? Neuro: Moves all extremities spontaneously. Sensation intact bilaterally. Ambulates with normal steady gait. Course Reevaluation(s) Reevaluation #1: CT of the abdomen and pelvis without evidence of obstructive or inflammatory gastrointestinal or genital urinary tracts. No urolithiasis. 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 Etiology/exact duration of such as unclear. Patient has never had abdominal imaging in the past and notes this has been present previously. He has no impaired renal function. No proteinuria, no microscopic hematuria or infection. Did not feel as though he requires emergent nephrology evaluation. Would recommend follow-up with primary care doctor in assure that they be made aware of findings. Advised to refrain, OTC NSAIDs. Recommend use of acetaminophen, topical lidocaine/Lidoderm patches for pain as needed. Reviewed strict return precautions. All questions answered Medical Decision Making Medical Decision Making MDM Narrative: Patient is a 39-year-old male no reported past medical history who presents emergency department for evaluation of right lower quadrant abdominal pain with associated symptoms as per HPI. Onset has been over the past few days but has experienced similar pain in the past. Although he does admit that it is worse as of recently. On evaluation he has mild tenderness throughout the right lower quadrant, no appreciable masses to suggest a hernia, no rebound tenderness at McBurney's point. Concern for possible nephrolithiasis/ureteral calculi. He is without signs of systemic toxicity, afebrile without tachycardia no hypotension. Rebound tenderness at McBurney's point, negative psoas sign, negative Rovsing sign, lower suspicion for acute appendicitis. Colitis is possible though I suspect less likely given no associated gastrointestinal symptoms but rather symptoms. Obtaining CT of the abdomen and pelvis for further evaluation. Had serum labs obtained prior to my assumption of care CBC is without leukocytosis anemia or thrombocytopenia. No electrolyte derangement. No OK. Normal LFTs, lipase minimally elevated at 189, no upper abdominal pain or tenderness to suggest acute biliary etiology. Urinalysis without evidence of infection or microscopic hematuria. Differential Diagnosis Differential Diagnoses: The differential diagnosis associated with the presentation includes (See narrative above) Admission/Observation Consideration of admission/observation: Escalation of care including admission/observation considered (See narrative above ) Lab Data MDM Lab Attestation statement: I reviewed the patient's lab results. 08/08/24 10:21 08/08/24 10:21 Labs: Lab Results 08/08/24 Range/Units 10:21 WBC 8.4 (4.8-10.8) X10*3/uL RBC 5.00 (4.60-5.80) X10*6/uL Hgb 16.7 (14.0-18.0) g/dl Hct 46.4 (42.0-52.0) % MCV 92.8 (80.0-98.0) fL MCH 33.4 H (27.0-33.0) pg MCHC 36.0 (31.0-36.0) g/dl RDW 13.1 (11.0-16.0) % Plt Count 237 (160-400) X10*3/uL MPV 10.3 (9.4-12.4) fL Immature Gran % (Auto) 0.2 (0.0-0.4) % Neut % (Auto) 60.7 (45-73) % Lymph % (Auto) 30.5 (20-40) % Broome % (Auto) 7.1 (2-11) % Eos % (Auto) 1.0 (0-4) % Baso % (Auto) 0.5 (0-2) % Lymph # (Auto) 2.6 (1.2-4.9) X10*3/uL Broome # (Auto) 0.6 (0.1-1.2) X10*3/uL Eos # (Auto) 0.1 (0.0-0.4) X10*3/uL Baso # (Auto) 0.0 (0.0-0.2) X10*3/uL Abs Immat Gran (auto) 0.02 (0.00-0.03) X10*3/uL Absolute Neuts (auto) 5.1 (2.0-8.3) x10*3/uL Absolute Nucleated RBC 0.000 (0.0-0.012) X10*3/uL Nucleated RBC % (auto) 0.0 (0.0-0.2) /100WBC Sodium 142 (135-145) mmol/L Potassium 4.6 (3.3-5.1) mmol/L Chloride 108 (96-108) mmol/L Carbon Dioxide 26 (22-29) mmol/L Anion Gap 13 (12-20) BUN 18 H (9-16) mg/dL Creatinine 1.00 (0.5-1.4) mg/dL Estim Creat Clear Calc 110.9 Estimated GFR > 60 Random Glucose 116 H (60-115) mg/dL Calcium 9.0 (8.4-10.2) mg/dL Total Bilirubin 0.4 (0.0-1.0) mg/dL Direct Bilirubin 0.1 (0.0-0.5) mg/dL AST 17 (5-37) U/L ALT 17 (0-40) U/L Alkaline Phosphatase 72 (39-117) U/L Total Protein 7.5 (6.5-8.0) g/dL Albumin 4.3 (3.5-5.0) g/dL Lipase 189 H (8-78) U/L Urine Color Dark Yellow Urine Appearance Clear Urine pH 6.0 (5.0-9.0) Ur Specific Carter 1.020 (1.005-1.025) Urine Protein Negative (Neg-Trace) mg/dL Urine Glucose (UA) Negative (Negative) mg/dL Urine Ketones Trace (Negative) mg/dL Urine Blood Negative (Negative) Urine Nitrite Negative (Negative) Ur Leukocyte Esterase Negative (Negative) Radiology Impression Discussion of test interpretation with radiology: I have reviewed the radiologist's reading. Radiologist Impression: IMPRESSION: CT abdomen and pelvis 1. No obstructive or acute inflammatory changes in the gastrointestinal and genitourinary tracts. 2. No urolithiasis. Atrophic dysplastic right kidney. External Record Review External record reviewed: Outpatient record Discharge Plan Discharge Clinical Impression: Abdominal pain, Atrophic kidney Patient Disposition: Home, Self-Care Instructions: Abdominal Pain (ED) Additional Instructions: As discussed, on imaging today there was an incidental finding of the right kidney being atrophied and dysplastic. It is unclear whether this is something you were born with or if this occurred later in life. Reassuringly, your kidney function is normal, your urine testing is free from signs of infection or protein buildup in the urine. I recommend refraining from NSAIDs which are available over the counter including ibuprofen/Motrin/Advil, Aleve/naproxen, aspirin. Establish care with a primary care doctor and be certain that they are aware of these findings. You can take Tylenol 500 mg, 2 tablets (1,000mg) every 4-6 hours as needed for pain, but not to exceed 3 doses daily (3,000mg).? Consider the use of topical Lidoderm patches available [id number] as well to areas pain. IMPRESSION: CT abdomen and pelvis. 1. No obstructive or acute inflammatory changes in the gastrointestinal and genitourinary tracts. 2. No urolithiasis. Atrophic dysplastic right kidney. Prescriptions: No Action No Known Home Meds Referrals: [facility] [Provider Group] [facility] [place] [facility] [place] Group[place] [facility] [Provider Group] Print Language: Vietnamese
[2024-08-08 12:48] VITALS: BP 99/64; PULSE 47; RESP 16; TEMP 36.5; O2SAT 97
[2024-08-08 14:11] VITALS: BP 100/76; PULSE 62; RESP 16; TEMP 36.7; O2SAT 98
== END 2024-08-08 14:16 | disposition home or self-care (01) ==
PROVIDERS: Emergency Provider Emergency Medicine
DX: N26.1 Atrophy of kidney (terminal) (principal); R10.31 Right lower quadrant pain; R35.0 Frequency of micturition; R10.2 Pelvic and perineal pain; F17.210 Nicotine dependence, cigarettes, uncomplicated; Z79.899 Other long term (current) drug therapy
CPT/HCPCS: 36415; 74176; 80048; 80076; 81003; 83690; 85025; 99284

== ENCOUNTER → 2024-08-08 11:52 | Outpatient (BNV) | payer OTHER, SELFPAY | PROVIDERS: Emergency Provider Emergency Medicine; Visit Provider Radiology Diagnostic Radiology | DX: R10.30 Lower abdominal pain, unspecified (principal); N26.1 Atrophy of kidney (terminal) | CPT/HCPCS: 74176 ==

== ENCOUNTER 2024-08-16 14:27 | Outpatient (AMB) | payer OTHER, SELFPAY ==
--- NOTE | 2024-08-16 14:36 | HO.NEPHOV_ITS ---
Vital Signs 08/16/24 14:38 Height 6 ft 1 in Weight 193 lb BMI 25.5 BP 120/72 Blood Pressure Location Rt brachial Position Sitting Pulse 77 Pulse Source Pulse Oximeter Pulse Oximetry (%) 96 Oxygen Delivery Method Room Air Intake Visit Reasons: Referred by [facility] [employer] Consultant Required: No Accompanied by: Self / Same As Patient Allergies No Known Allergies Allergy (Verified 08/16/24 14:40) HPI Comments Details: 39-year-old man referred for atrophic right kidney. About 2 weeks ago he went to the ER because of right-sided lower abdominal pain. During routine evaluation he had a CT scan which revealed atrophy right kidney. No renal stones. No other urogenital abnormalities was noted. Serum creatinine has been normal at 0.8 mg/dL. Urinalysis was benign without any blood or protein. He has a history of bicuspid aortic valve with [id number] stenosis. Seen by Cardiology in 2022 [facility] Surgical History Hx of toe surgery Family History Father No problems noted. Mother No problems noted. Social History Patient Tobacco Use Status: Current everyday Tobacco user Review of Systems Const Denies fever(s) and Denies weight loss Card Denies chest pain Resp Denies cough and Denies hemoptysis GI Denies abdominal pain, Denies diarrhea and Denies nausea Musc Denies back pain Neuro Denies focal weakness Physical Exam Vital Signs: Last Vital Signs Pulse 77 08/16/24 14:38 BP 120/72 08/16/24 14:38 Pulse Ox 96 08/16/24 14:38 Oxygen Delivery Method Room Air 08/16/24 14:38 BMI result Body Mass Index 25.5 Results Reviewed Nephrology Results: Hgb 16.7 g/dl (14.0-18.0) 08/08/24 WBC 8.4 X10*3/uL (4.8-10.8) 08/08/24 Plt Count 237 X10*3/uL (160-400) 08/08/24 Sodium 142 mmol/L (135-145) 08/08/24 Potassium 4.6 mmol/L (3.3-5.1) 08/08/24 Chloride 108 mmol/L (96-108) 08/08/24 Carbon Dioxide 26 mmol/L (22-29) 08/08/24 BUN 18 mg/dL (9-16) H 08/08/24 Creatinine 1.00 mg/dL (0.5-1.4) 08/08/24 Calcium 9.0 mg/dL (8.4-10.2) 08/08/24 Urine Protein Negative mg/dL (Neg-Trace) 08/08/24 Assessment & Plan Assessment & Plan (1) Atrophy of right kidney: Code(s): N26.1 - Atrophy of kidney (terminal) Category: Medical Plan 39-year-old man with atrophic right kidney. No evidence of obstruction. It is unclear if this is congenital. Compensatory hypertrophy of the left kidney Currently renal function is normal. Workup ordered including new nuclear scan Encouraged to stay on low-sodium diet Maintain blood pressure less than 130/80 Increase p.o. fluid intake. Continue to avoid nephrotoxic agents including NSAIDs. Orders: Orders UA and rflx microscopic Today N26.1 - Atrophy of kidney (terminal) Creatinine Urine Today N26.1 - Atrophy of kidney (terminal) Total Protein Urine Random Today N26.1 - Atrophy of kidney (terminal) NM renal flow w pharm int Today N26.1 - Atrophy of kidney (terminal) Coding Level of Care Code New Pt Level 4 (97241) Diagnoses Atrophy of right kidney N26.1
[2024-08-16 14:38] VITALS: BP 120/72; PULSE 77; O2SAT 96; BMI 25.5
--- OUTSIDE RECORDS SUMMARY | 2024-08-16 16:57 | XMS_ITS | Encounter Summary ---
Author Organization [facility] Address [address] [place] [address] Care Team Providers Care Technology Development Intern Name Role Phone Mick Rebolledo MD Primary Care Provider [phone] Encounter Details Date Type Department Care Team (Late st Contact Info) Description 11/01/2022 Scanned Document [facility] Department of Internal Medicine [place] [address] [place] [address] Yvette Woods, CIRCULATION ASSISTANT [address] [place] [phone] Social History Tobacco Use Types Packs/Day Years [...] on filedocumented in this encounter Care Teams Technology Development Intern Relationship Specialty Start Date End Date Mick Rebolledo MD [address] [place] [address] PCP - General documented as of this encounter
--- OUTSIDE RECORDS SUMMARY | 2024-08-16 16:57 | XMS_ITS | Encounter Summary ---
Author Organization [facility] Address [address] [place] [address] Care Team Providers Care Molder Machine Tender Name Role Phone Mick Rebolledo MD Primary Care Provider [phone] Encounter Details Date Type Department Care Team (Late st Contact Info) Description 12/11/2022 Scanned Document [facility] Department of Internal Medicine [place] [address] [place] [address] Mick Rebolledo MD [address] [place] [address] Social History Tobacco Use Types Packs/Day Years [...] filedocumented in this encounter Care Teams Molder Machine Tender Relationship Specialty Start Date End Date Mick Rebolledo MD [address] [place] [address] PCP - General documented as of this encounter
--- OUTSIDE RECORDS SUMMARY | 2024-08-16 16:57 | XMS_ITS | Encounter Summary ---
Author Organization [facility] Address [address] [place] [address] Care Team Providers Care Electronics Mechanic Apprentice Name Role Phone Mick Rebolledo MD Primary Care Provider [phone] Encounter Details Date Type Department Care Team (Late st Contact Info) Description 09/11/2022 Scanned Document [facility] Department of Internal Medicine [place] [address] [place] [address] Mick Rebolledo MD [address] [place] [address] Social History Tobacco Use Types Packs/Day Years [...] on filedocumented in this encounter Care Teams Electronics Mechanic Apprentice Relationship Specialty Start Date End Date Mick Rebolledo MD [address] [place] [address] PCP - General documented as of this encounter
--- OUTSIDE RECORDS SUMMARY | 2024-08-16 16:57 | XMS_ITS | Encounter Summary ---
Author Organization [facility] Address [address] [place] [address] Care Team Providers Care Fence Manufacture Supervisor Name Role Phone Mick Rebolledo MD Primary Care Provider [phone] Encounter Details Date Type Department Care Team (Late st Contact Info) Description 11/12/2022 Scanned Document [facility] Department of Internal Medicine [place] [address] [place] [address] Yvette Woods, PROJECT SURVEYOR [address] [place] [phone] Social History Tobacco Use Types Packs/Day Years [...] on filedocumented in this encounter Care Teams Fence Manufacture Supervisor Relationship Specialty Start Date End Date Mick Rebolledo MD [address] [place] [address] PCP - General documented as of this encounter
--- OUTSIDE RECORDS SUMMARY | 2024-08-16 16:57 | XMS_ITS | Clinical Summary ---
Author Organization [facility] Address [address] [place] [id number] Care Team Providers Care Ground Hel[address] Railway Name Role Phone Mick Rebolledo MD Primary Care Provider [phone] Allergies No known active allergies Medications No [...] age to complete this topic Care Teams Ground [address] Railway Relationship Specialty Start Date End Date Mick Rebolledo MD [address] [place] [address] PCP - General
--- OUTSIDE RECORDS SUMMARY | 2024-08-16 16:57 | XMS_ITS | Encounter Summary ---
Author Organization [facility] Address [address] [place] [address] Care Team Providers Care Geriatric Personal Care Aide Name Role Phone Mick Rebolledo MD Primary Care Provider [phone] Encounter Details Date Type Department Care Team (Late st Contact Info) Description 12/05/2022 Scanned Document [facility] Department of Internal Medicine [place] [address] [place] [address] Yvette Woods, METAL FABRICATOR HELPER [address] [place] [phone] Social History Tobacco Use Types Packs/Day Years [...] on filedocumented in this encounter Care Teams Geriatric Personal Care Aide Relationship Specialty Start Date End Date Mick Rebolledo MD [address] [place] [address] PCP - General documented as of this encounter
--- OUTSIDE RECORDS SUMMARY | 2024-08-16 16:57 | XMS_ITS | Encounter Summary ---
Author Organization [facility] Address [address] [place] [address] Care Team Providers Care Video Game Repair Technician Name Role Phone Mick Rebolledo MD Primary Care Provider [phone] Encounter Details Date Type Department Care Team (Late st Contact Info) Description 08/06/2023 Scanned Document [facility] Department of Internal Medicine [place] [address] [place] [address] Mick Rebolledo MD [address] [place] [address] Social History Tobacco Use Types Packs/Day Years [...] on filedocumented in this encounter Care Teams Video Game Repair Technician Relationship Specialty Start Date End Date Mick Rebolledo MD [address] [place] [address] PCP - General documented as of this encounter
--- OUTSIDE RECORDS SUMMARY | 2024-08-16 16:57 | XMS_ITS | Encounter Summary ---
Author Organization [facility] Address [address] [place] [address] Care Team Providers Care Drafting Technician Name Role Phone Mick Rebolledo MD Primary Care Provider [phone] Encounter Details Date Type Department Care Team (Late st Contact Info) Description 07/29/2023 Scanned Document [facility] Department of Internal Medicine [place] [address] [place] [address] Mick Rebolledo MD [address] [place] [address] Social History Tobacco Use Types Packs/Day Years [...] on filedocumented in this encounter Care Teams Drafting Technician Relationship Specialty Start Date End Date Mick Rebolledo MD [address] [place] [address] PCP - General documented as of this encounter
--- OUTSIDE RECORDS SUMMARY | 2024-08-16 16:57 | XMS_ITS | Clinical Summary ---
Author Organization [facility] Address [address] [place] [address] Care Team Providers Care Display Fabricator Name Role Phone Mick Rebolledo MD Primary [...] age to complete this topic Care Teams Display Fabricator Relationship Specialty Start Date End Date Mick Rebolledo MD PCP - General Internal Medicine 01/25/20
--- OUTSIDE RECORDS SUMMARY | 2024-08-16 16:57 | XMS_ITS | Encounter Summary ---
Author Organization [facility] Address [address] [place] [address] Care Team Providers Care Smooth And Burr Worker Composites Name Role Phone Mick Rebolledo MD Primary Care Provider [phone] Encounter Details Date Type Department Care Team (Late st Contact Info) Description 07/24/2023 Scanned Document [facility] Department of Internal Medicine [place] [address] [place] [address] Mick Rebolledo MD [address] [place] [address] Social History Tobacco Use Types Packs/Day Years [...] on filedocumented in this encounter Care Teams Smooth And Burr Worker Composites Relationship Specialty Start Date End Date Mick Rebolledo MD [address] [place] [address] PCP - General documented as of this encounter
--- OUTSIDE RECORDS SUMMARY | 2024-08-16 16:57 | XMS_ITS | Encounter Summary ---
Author Organization [facility] Address [address] [place] [address] Care Team Providers Care Stenotype Operator Name Role Phone Mick Rebolledo MD Primary Care Provider [phone] Encounter Details Date Type Department Care Team (Late st Contact Info) Description 07/24/2023 Scanned Document [facility] Department of Internal Medicine [place] [address] [place] [address] Mick Rebolledo MD [address] [place] [address] Social History Tobacco Use Types Packs/Day Years [...] on filedocumented in this encounter Care Teams Stenotype Operator Relationship Specialty Start Date End Date Mick Rebolledo MD [address] [place] [address] PCP - General documented as of this encounter
--- OUTSIDE RECORDS SUMMARY | 2024-08-16 16:57 | XMS_ITS | Encounter Summary ---
Author Organization [facility] Address [address] [place] [address] Care Team Providers Care Swimming Pool Service Technician Name Role Phone Mick Rebolledo MD Primary Care Provider [phone] Encounter Details Date Type Department Care Team (Late st Contact Info) Description 07/31/2023 Scanned Document [facility] Department of Internal Medicine [place] [address] [place] [address] Mick Rebolledo MD [address] [place] [address] Social History Tobacco Use Types Packs/Day Years [...] on filedocumented in this encounter Care Teams Swimming Pool Service Technician Relationship Specialty Start Date End Date Mick Rebolledo MD [address] [place] [address] PCP - General documented as of this encounter
--- OUTSIDE RECORDS SUMMARY | 2024-08-16 16:57 | XMS_ITS | Encounter Summary ---
Author Organization [facility] Address [address] [place] [address] Care Team Providers Care Policy Issue Clerk Name Role Phone Mick Rebolledo MD Primary Care Provider [phone] Encounter Details Date Type Department Care Team (Late st Contact Info) Description 08/06/[address] [facility] Department of Internal Medicine [place] [address] [place] [address] Mick Rebolledo MD [address] [place] [address] Social History Tobacco Use Types Packs/Day Years [...] on filedocumented in this encounter Care Teams Policy Issue Clerk Relationship Specialty Start Date End Date Mick Rebolledo MD [address] [place] [address] PCP - General documented as of this encounter
--- OUTSIDE RECORDS SUMMARY | 2024-08-16 16:57 | XMS_ITS | Encounter Summary ---
Author Organization [facility] Address [address] [place] [address] Care Team Providers Care Geophysical Laboratory Director Name Role Phone Mick Rebolledo MD Primary Care Provider [phone] Encounter Details Date Type Department Care Team (Late st Contact Info) Description 08/15/2023 Scanned Document [facility] Department of Internal Medicine [place] [address] [place] [address] Mick Rebolledo MD [address] [place] [address] Social History Tobacco Use Types Packs/Day Years [...] on filedocumented in this encounter Care Teams Geophysical Laboratory Director Relationship Specialty Start Date End Date Mick Rebolledo MD [address] [place] [address] PCP - General documented as of this encounter
--- OUTSIDE RECORDS SUMMARY | 2024-08-16 16:57 | XMS_ITS | Clinical Summary ---
Author Organization [facility] Address [address] [place] [address] Phone Care Team Providers Care Production Control Coordinating Clerk Name Role Phone Mick Rebolledo MD Primary Care Provider + Allergies No known active allergies Medications No known medications Active Problems No known active problems Social History Tobacco Use Types Packs/Day Years Used Date Smoking Tobacco: Every Day Smokeless Tobacco: Never Alcohol Use Standard Drinks/Week Comments Not Currently 0 (1 standard drink = 0.6 oz pur e alcohol) Education Answer Date Recorded Are you interested in more education? Not on pravin e 09/28/2022 Are you concerned about learning? Not on file 09/28/2022 No 09/28/2022 No 09/28/2022 Digital Access Answer Date Recorded No 10/27/2022 No 10/27/2022 No 10/27/2022 Reliable internet access at home? Not on file 10/27/2022 Device with a working camera? Not on file Sex and Gender Information Value Date Recorded Sex Assigned at Not on file Gender Identity Not on file Sexual Orientation Not on file Last Filed Vital Signs Vital Sign Reading Time Taken Comments Blood Pressure 118/70 02/22/2021 1:02 PM EDT Pulse 71 02/22/2021 1:02 PM EDT Temperature 36.8 ??C (98.2 ??F) 02/22/2021 1:02 PM ED T Respiratory Rate - - Oxygen Saturation 98% 02/22/2021 1:02 PM EDT Inhaled Oxygen Concentration - - Weight 77.1 kg (170 lb) 02/22/2021 1:02 PM EDT Height 185.4 cm (6' 1 ) 02/22/2021 1:02 PM EDT Body Mass Index 22.43 02/22/2021 1:02 PM EDT Plan of Treatment Health Maintenance Due Date Last Done Comments Adult Td,Tdap Booster 1984 LIPID PANEL 1984 DEPRESSION SCREENING 1996 SMOKING Hx and SMOKELESS TOB ACCO SCREENING 1997 HEPATITIS C SCREENING 2002 HIV ONE-TIME SCREENING (18-6 5 YEARS) 2002 PNEUMOCOCCAL VACCINES (0-49 years) (1 of 2 - PCV) 2003 INFLUENZA VACCINE (#1) 2024 COVID-19 VACCINE (1 - 2023-2 5 season) 2024 HEPATITIS A VACCINES Aged Out No long er eligible based on patient's age to complete this topic HIB VACCINES Aged Out No longer eligi ble based on patient's age to complete this topic MENINGOCOCCAL VACCINES (ACWY) Aged Out No longer eligible based on patient's age to complete this topic Medical Devices Not on file Care Teams Production Control Coordinating Clerk Relationship Specialty Start Date End Date Mick Rebolledo MD [address] [facility] [place] [address] PCP - General Internal Medicine 02/22/21 Additional Source Comments The information contained in this document represents components of the legal health record. It is not the complete legal health record.[facility]
--- OUTSIDE RECORDS SUMMARY | 2024-08-16 16:57 | XMS_ITS | Encounter Summary ---
Author Organization [facility] Address [address] [place] [address] Care Team Providers Care Ball Truing Machine Operator Name Role Phone Mick Rebolledo MD Primary Care Provider [phone] Encounter Details Date Type Department Care Team (Late st Contact Info) Description 10/10/2022 Scanned Document [facility] Department of Internal Medicine [place] [address] [place] [address] Mick Rebolledo MD [address] [place] [address] Social History Tobacco Use Types Packs/Day Years [...] on filedocumented in this encounter Care Teams Ball Truing Machine Operator Relationship Specialty Start Date End Date Mick Rebolledo MD [address] [place] [address] PCP - General documented as of this encounter
--- OUTSIDE RECORDS SUMMARY | 2024-08-16 16:57 | XMS_ITS | Clinical Summary ---
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
--- OUTSIDE RECORDS SUMMARY | 2024-08-16 16:57 | XMS_ITS | Encounter Summary ---
Author Organization [facility] Address [address] [place] [address] Care Team Providers Care Counter Professional Name Role Phone Mick Rebolledo MD Primary Care Provider [phone] Encounter Details Date Type Department Care Team (Late st Contact Info) Description 08/15/2023 Scanned Document [facility] Department of Internal Medicine [place] [address] [place] [address] Mick Rebolledo MD [address] [place] [address] Social History Tobacco Use Types Packs/Day Years [...] on filedocumented in this encounter Care Teams Counter Professional Relationship Specialty Start Date End Date Mick Rebolledo MD [address] [place] [address] PCP - General documented as of this encounter
== END 2024-08-16 15:00 | disposition home or self-care (01) ==
LOC: HO.HKA 14:28
PROVIDERS: Visit Provider Internal Medicine Hypertension Specialist
DX: N26.1 Atrophy of kidney (terminal) (principal)
CPT/HCPCS: 99204

== ENCOUNTER → 2024-08-16 14:27 | Outpatient (BNVA) | payer OTHER, SELFPAY | PROVIDERS: Visit Provider Internal Medicine Hypertension Specialist ==

== ENCOUNTER 2024-08-18 12:36 | Outpatient (REF) | payer OTHER, SELFPAY ==
[2024-08-18 13:50] LABS: Appearance Urine Clear; Color Urine Yellow; Glucose Urine UA Negative (Negative); Leukocyte Esterase Urine Negative (Negative); Nitrite Urine Negative (Negative); PH 7.5 (5.0-9.0); Specific Gravity - Urine 1.015 (1.005-1.025); Urine Blood Negative (Negative); Urine Ketones Negative (Negative); Urine Protein Negative (Neg-Trace)
[2024-08-18 14:23] LABS: Creatinine Urine 116.49 mg/dL; Total Protein Urine Random 8 mg/dL (<12)
== END 2024-08-18 12:37 | disposition home or self-care (01) ==
LOC: HO.10HDLNP 12:36
PROVIDERS: Visit Provider Internal Medicine Hypertension Specialist
DX: N26.1 Atrophy of kidney (terminal) (principal)
CPT/HCPCS: 81003; 82570; 84156

== ENCOUNTER → 2024-09-16 12:37 | Outpatient (REF) | payer OTHER, SELFPAY ==
--- NOTE | ~2024-09-16 | NM_ITS ---
EXAMINATION: NM KIDNEY IMAGING CLINICAL INFORMATION: Atrophic left kidney COMPARISON: None available. TECHNIQUE: Following intravenous administration of 10 mCi of technetium 99m DTPA, for fusion imaging over both kidneys was obtained up to 1 minute. 2 minute images were obtained up to next 60 minutes. 40 mg of Lasix was given at 30 minutes into the examination. FINDINGS: On perfusion imaging there normal flow seen to left kidney. The right kidney is small and atrophic with significantly diminished flow. Static images there is normal left kidney cortical uptake and excretion without obstruction. There is focal upper pole caliectasis suspected. There is diminished right kidney cortical activity. Post Lasix there is no response to either kidney as patient was already excreting on the left side and focal caliectasis resolved. There is diminished activity in the right kidney with no change on pre and post-Lasix images. On renal analysis left kidney split function is 100% right kidney function is 0%. Thymoma maximum activity left kidney is 4 minutes and right kidney 0.5 minutes. Time of Max to half max right kidney is 11.5 minutes and right kidney is 1671.44 minutes NM/NM renal flow w pharm int IMPRESSION: Normal left kidney cortical function, excretion without obstruction. No response to Lasix as the kidney was already excreting. Focal caliectasis resolved spontaneously post Lasix. Small left kidney with significantly diminished perfusion, cortical function. The cortical uptake is significantly decreased with no response to Lasix. Electronically signed by: Valente Worley MD 09/21/2024 10:18 AM EDT
--- OUTSIDE RECORDS SUMMARY | 2024-09-16 15:24 | XMS_ITS | Encounter Summary ---
Author Organization [facility] Address [address] [place] [address] Care Team Providers Care Supervisor Slitting And Shipping Name Role Phone Mick Rebolledo MD Primary Care Provider [phone] Encounter Details Date Type Department Care Team (Late st Contact Info) Description 10/10/2022 Scanned Document [facility] Department of Internal Medicine [place] [address] [place] [address] Mick Rebolledo MD Needs valid address Social History Tobacco Use Types Packs/Day Years Used Date Smoking Tobacco: Never Assessed Sex and Gender Information Value Date Recorded Sex Assigned at Male 07/17/2022 4:30 PM EST Legal Sex Male 11:41 AM EDT Gender Identity Male 07/17/2022 4:30 PM EST Sexual Orientation Heterosexual (straight) 07/17 4:30 PM EST documented as of this encounter Plan of Treatment Not on file documented as of this encounter Visit Diagnoses Not on filedocumented in this encounter Care Teams Supervisor Slitting And Shipping Relationship Specialty Start Date End Date Mick Rebolledo MD PCP - General documented as of this encounter
--- OUTSIDE RECORDS SUMMARY | 2024-09-16 15:24 | XMS_ITS | Encounter Summary ---
Author Organization [facility] Address [address] [place] [address] Care Team Providers Care Gynecologist Name Role Phone Mick Rebolledo MD Primary Care Provider [phone] Encounter Details Date Type Department Care Team (Late st Contact Info) Description 12/05/2022 Scanned Document [facility] Department [facility] Medicine [place] [address] [place] [address] Chuck Yvette, IMPORTER OR EXPORTER [address] [phone] Social History Tobacco Use Types Packs/Day Years [...] on filedocumented in this encounter Care Teams Gynecologist Relationship Specialty Start Date End Date Mick Rebolledo MD PCP - General documented as of this encounter
--- OUTSIDE RECORDS SUMMARY | 2024-09-16 15:24 | XMS_ITS | Clinical Summary ---
Author Organization [facility] Address [address] [place] [address] Phone Care Team Providers Care Exhibition Carver Name Role Phone Mick Rebolledo MD Primary [...] Medical Devices Not on file Care Teams Exhibition Carver Relationship Specialty Start Date End Date Mick Rebolledo MD [address] [facility] [place] [address] PCP - General Internal Medicine 02/22/21 Additional Source Comments The information contained in this document represents components of the legal health record. It is not the complete legal health record.[facility]
--- OUTSIDE RECORDS SUMMARY | 2024-09-16 15:24 | XMS_ITS | Encounter Summary ---
Author Organization [facility] Address [address] [place] [address] Care Team Providers Care General Internist Name Role Phone Mick Rebolledo MD Primary Care Provider [phone] Encounter Details Date Type Department Care Team (Late st Contact Info) Description 08/15/2023 Scanned Document [facility] Department of Internal Medicine [place] [address] [place] [address] Mick Rebolledo MD Needs valid address Social [...] on filedocumented in this encounter Care Teams General Internist Relationship Specialty Start Date End Date Mick Rebolledo MD PCP - General documented as of this encounter
--- OUTSIDE RECORDS SUMMARY | 2024-09-16 15:24 | XMS_ITS | Encounter Summary ---
Author Organization [facility] Address [address] [place] [address] Care Team Providers Care Floor Director Name Role Phone Mick Rebolledo MD Primary Care Provider [phone] Encounter Details Date Type Department Care Team (Late st Contact Info) Description 11/12/2022 Scanned [facility] [place] [address] [place] [address] Chuck Yvette, BOTANY TECHNICIAN [address] [phone] Social History Tobacco Use Types Packs/Day Years [...] on filedocumented in this encounter Care Teams Floor Director Relationship Specialty Start Date End Date Mick Rebolledo MD PCP - General documented as of this encounter
--- OUTSIDE RECORDS SUMMARY | 2024-09-16 15:24 | XMS_ITS | Encounter Summary ---
Author Organization [facility] Address [address] [place] [address] Care Team Providers Care Melt House Drag Operator Name Role Phone Mick Rebolledo MD Primary Care Provider [phone] Encounter Details Date Type Department Care Team (Late st Contact Info) Description 07/29/2023 Scanned Document [facility] Department of Internal Medicine [place] [address] [place] [address] Mick Rebolledo MD Needs valid address Social [...] on filedocumented in this encounter Care Teams Melt House Drag Operator Relationship Specialty Start Date End Date Mick Rebolledo MD PCP - General documented as of this encounter
--- OUTSIDE RECORDS SUMMARY | 2024-09-16 15:24 | XMS_ITS | Clinical Summary ---
Author Organization [facility] Address [address] [place] [address] Care Team Providers Care Open Hearth Door Liner Name Role Phone Mcik Rebolledo MD Primary Care Provider [phone] Allergies No known active allergies Medications No [...] PCV) 2003 Influenza Vaccine 01/01/2024 COVID-19 Vaccine ( - 2023-2 5 season) 2024 HPV Vaccines Aged Out No longer eligi ble based on patient's age to complete this topic Insurance [facility] Care Teams Open Hearth Door Liner Relationship Specialty Start Date End Date Mick Rebolledo MD PCP - General
--- OUTSIDE RECORDS SUMMARY | 2024-09-16 15:24 | XMS_ITS | Encounter Summary ---
Author Organization [facility] Address [address] [place] [address] Care Team Providers Care Retail Shift Manager Name Role Phone Mick Rebolledo MD Primary Care Provider [phone] Encounter Details Date Type Department Care Team (Late st Contact Info) Description 12/11/2022 Scanned Document [facility] Department of Internal Medicine [place] [address] [place] [address] Mick Rebolledo MD Needs valid address Social [...] on filedocumented in this encounter Care Teams Retail Shift Manager Relationship Specialty Start Date End Date Mick Rebolledo MD PCP - General documented as of this encounter
--- OUTSIDE RECORDS SUMMARY | 2024-09-16 15:24 | XMS_ITS | Encounter Summary ---
Author Organization [facility] Address [address] [place] [address] Care Team Providers Care Body Painter Name Role Phone Mick Rebolledo MD Primary Care Provider [phone] Encounter Details Date Type Department Care Team (Late st Contact Info) Description 09/11/2022 Scanned Document [facility] Department of Internal Medicine [place] [address] [place] [address] Mick Rebolledo MD Needs valid address Social [...] on filedocumented in this encounter Care Teams Body Painter Relationship Specialty Start Date End Date Mick Rebolledo MD PCP - General documented as of this encounter
--- OUTSIDE RECORDS SUMMARY | 2024-09-16 15:24 | XMS_ITS | Encounter Summary ---
Author Organization [facility] Address [address] [place] [address] Care Team Providers Care Casket Assembler Name Role Phone Mick Rebolledo MD Primary Care Provider [phone] Encounter Details Date Type Department Care Team (Late st Contact Info) Description 07/24/2023 Scanned Document [facility] Department of Internal Medicine [place] [address] [place] [address] Mick Rebolledo MD Needs valid address Social [...] on filedocumented in this encounter Care Teams Casket Assembler Relationship Specialty Start Date End Date Mick Rebolledo MD PCP - General documented as of this encounter
--- OUTSIDE RECORDS SUMMARY | 2024-09-16 15:24 | XMS_ITS | Encounter Summary ---
Author Organization [facility] Address [address] [place] [address] Care Team Providers Care Moth Proofer Name Role Phone Mick Rebolledo MD Primary Care Provider [phone] Encounter Details Date Type Department Care Team (Late st Contact Info) Description 08/06/2023 Scanned Document [facility] Department of Internal Medicine [place] [address] [place] [address] Mick Rebolledo MD Needs valid address Social [...] on filedocumented in this encounter Care Teams Moth Proofer Relationship Specialty Start Date End Date Mick Rebolledo MD PCP - General documented as of this encounter
--- OUTSIDE RECORDS SUMMARY | 2024-09-16 15:24 | XMS_ITS | Encounter Summary ---
Author Organization [facility] Address [address] [place] [address] Care Team Providers Care Correctional Officer Name Role Phone Mick Rebolledo MD Primary Care Provider [phone] Encounter Details Date Type Department Care Team (Late st Contact Info) Description 08/15/2023 Scanned Document [facility] Department of Internal Medicine [place] [address] [place] [address] Mick Rebolledo MD Needs valid address Social [...] on filedocumented in this encounter Care Teams Correctional Officer Relationship Specialty Start Date End Date Mick Rebolledo MD PCP - General documented as of this encounter
--- OUTSIDE RECORDS SUMMARY | 2024-09-16 15:24 | XMS_ITS | Encounter Summary ---
Author Organization [facility] Address [address] [place] [address] Care Team Providers Care Blocker And Polisher Name Role Phone Mick Rebolledo MD Primary Care Provider [phone] Encounter Details Date Type Department Care Team (Late st Contact Info) Description 07/24/2023 Scanned Document [facility] Department of Internal Medicine [place] [address] [place] [address] Mick Rebolledo MD Needs valid address Social [...] on filedocumented in this encounter Care Teams Blocker And Polisher Relationship Specialty Start Date End Date Mick Rebolledo MD PCP - General documented as of this encounter
--- OUTSIDE RECORDS SUMMARY | 2024-09-16 15:24 | XMS_ITS | Encounter Summary ---
Author Organization [facility] Address [address] [place] [address] Care Team Providers Care Three Dimensional Map Modeler Name Role Phone Mick Rebolledo MD Primary Care Provider [phone] Encounter Details Date Type Department Care Team (Late st Contact Info) Description 08/06/2023 Scanned Document [facility] Department of Internal Medicine [place] [address] [place] [address] Mick Rebolledo MD Needs valid address Social [...] on filedocumented in this encounter Care Teams Three Dimensional Map Modeler Relationship Specialty Start Date End Date Mick Rebolledo MD PCP - General documented as of this encounter
--- OUTSIDE RECORDS SUMMARY | 2024-09-16 15:24 | XMS_ITS | Encounter Summary ---
Author Organization [facility] Address [address] [place] [address] Care Team Providers Care Telegraphic Typewriter Mechanic Name Role Phone Mick Rebolledo MD Primary Care Provider [phone] Encounter Details Date Type Department Care Team (Late st Contact Info) Description 11/01/2022 Scanned Document [facility] Department of Internal Medicine [place] [address] [place] [address] Chuck Yvette, EXTRUSION OPERATOR [address] [phone] Social History Tobacco Use Types Packs/Day Years [...] on filedocumented in this encounter Care Teams Telegraphic Typewriter Mechanic Relationship Specialty Start Date End Date Mick Rebolledo MD PCP - General documented as of this encounter
--- OUTSIDE RECORDS SUMMARY | 2024-09-16 15:24 | XMS_ITS | Encounter Summary ---
Author Organization [facility] Address [address] [place] [address] Care Team Providers Care Social Problems Specialist Name Role Phone Mick Rebolledo MD Primary Care Provider [phone] Encounter Details Date Type Department Care Team (Late st Contact Info) Description 07/31/2023 Scanned Document [facility] Department of Internal Medicine [place] [address] [place] [address] Mick Rebolledo MD Needs valid address Social [...] on filedocumented in this encounter Care Teams Social Problems Specialist Relationship Specialty Start Date End Date Mick Rebolledo MD PCP - General documented as of this encounter
--- OUTSIDE RECORDS SUMMARY | 2024-09-16 15:24 | XMS_ITS | Clinical Summary ---
Author Organization [facility] Address [address] [place] [address] Care Team Providers Care Installer Name Role Phone Mick Rebolledo MD Primary [...] age to complete this topic Care Teams Installer Relationship Specialty Start Date End Date Mick Rebolledo MD PCP - General Internal Medicine 01/25/20
--- OUTSIDE RECORDS SUMMARY | 2024-09-16 15:24 | XMS_ITS | Clinical Summary ---
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] age to complete this topic Care Teams Sequins Stringer Relationship Specialty Start Date End Date Mick Rebolledo MD [address] [address] PCP - General Internal Medicine 01/25/20
== END ==
LOC: HO.NUCMED 12:37
PROVIDERS: Visit Provider Internal Medicine Hypertension Specialist
DX: N26.1 Atrophy of kidney (terminal) (principal)
CPT/HCPCS: 78708; A9539; J1938

== ENCOUNTER → 2024-09-16 12:39 | Outpatient (BNV) | payer OTHER, SELFPAY | PROVIDERS: Visit Provider Radiology Diagnostic Radiology | DX: N26.1 Atrophy of kidney (terminal) (principal) | CPT/HCPCS: 78708 ==

== ENCOUNTER 2024-09-23 14:33 | Outpatient (AMB) | payer OTHER, SELFPAY ==
--- NOTE | 2024-09-23 14:32 | HO.NEPHOV ---
Vital Signs 09/23/24 14:33 Height 6 ft 1 in Weight 188 lb 6 oz BMI 24.9 BP 118/90 H Blood Pressure Location Rt brachial Position Sitting Pulse 59 Pulse Source Pulse Oximeter Pulse Oximetry (%) 98 Oxygen Delivery Method Room Air Intake Visit Reasons: 1 MO FU/ LVM Allergies No Known Allergies Allergy (Verified 09/23/24 14:48) HPI Comments Details: 39-year-old man referred for atrophic right kidney. About 2 weeks ago he went to the ER because of right-sided lower abdominal pain. During routine evaluation he had a CT scan which revealed atrophy right kidney. No renal stones. No other urogenital abnormalities was noted. Serum creatinine has been normal at 0.8 mg/dL. Urinalysis was benign without any blood or protein. He has a history of bicuspid aortic valve with riyg-lj-fgbwozoi stenosis. Seen by Cardiology in 202209/23/2024. Still feels some discomfort in the right inguinal on area No urinary symptoms. Underwent renal scan [facility] Surgical History Hx of toe surgery Family History Father No problems noted. Mother No problems noted. Social History Patient Tobacco Use Status: Current everyday Tobacco user Physical Exam Vital Signs: Last Vital Signs Pulse 59 09/23/24 14:33 BP 118/90 H 09/23/24 14:33 Pulse Ox 98 09/23/24 14:33 Oxygen Delivery Method Room Air 09/23/24 14:33 BMI result Body Mass Index 24.9 General: Well-appearing well-nourished in no signs of distress HEENT: Normocephalic atraumatic Neck: No signs of JVD, no masses no tenderness or lymphadenopathy Cardiovascular: Regular rate and rhythm Respiratory: Clear to auscultation bilaterally Abdomen: Soft nontender no masses negative psoas sign no tenderness at McBurney's point Extremities: Normal pedal pulses no signs of edema Skin: Dry warm no rashes Back: No tenderness full ROM Extrem Other: Possible right inguinal hernia with cough impulse Results Reviewed Results Reviewed: Renal scan left kidney split function is 100% right kidney function is 0%. Nephrology Results: Hgb 16.7 g/dl (14.0-18.0) 08/08/24 WBC 8.4 X10*3/uL (4.8-10.8) 08/08/24 Plt Count 237 X10*3/uL (160-400) 08/08/24 Sodium 142 mmol/L (135-145) 08/08/24 Potassium 4.6 mmol/L (3.3-5.1) 08/08/24 Chloride 108 mmol/L (96-108) 08/08/24 Carbon Dioxide 26 mmol/L (22-29) 08/08/24 BUN 18 mg/dL (9-16) H 08/08/24 Creatinine 1.00 mg/dL (0.5-1.4) 08/08/24 Calcium 9.0 mg/dL (8.4-10.2) 08/08/24 Urine Protein Negative mg/dL (Neg-Trace) 08/18/24 Urine Creatinine 116.49 mg/dL 08/18/24 Assessment & Plan Assessment & Plan (1) Atrophy of right kidney: Code(s): N26.1 - Atrophy of kidney (terminal) Category: Medical Plan 39-year-old man with atrophic right kidney. And bicuspid aortic valve No evidence of obstruction. Compensatory hypertrophy of the left kidney Currently renal function is normal. Urine studies were bland no protein or blood. Serum creatinine normal. Renal scan shows left kidney functioning at 100% and no function of the right kidney. He still has some discomfort in the right groin. I suspect he could have a right inguinal hernia. I will refer him to General surgery for evaluation Orders: Referrals General Surgery Referral K40.90 - Unilateral inguinal hernia, without obstruction or gangrene, not specified as recurrent Coding Level of Care Code Est Pt Level 4 (99484) Diagnoses Atrophy of right kidney N26.1
[2024-09-23 14:33] VITALS: BP 118/90; PULSE 59; O2SAT 98; BMI 24.9
--- OUTSIDE RECORDS SUMMARY | 2024-09-23 17:09 | XMS_ITS | Encounter Summary ---
Author Organization [facility] Address [address] [place] [address] Care Team Providers Care Public Health Dietitian Name Role Phone Mick Rebolledo MD Primary Care Provider Unavail able Encounter Details Date Type Department Care Team (Late st Contact Info) Description 11/01/2022 Scanned Document [facility] Department of Internal Medicine [place] [address] [place] [address] Yvette Woods APRN [address] [place] [phone] Social History Tobacco Use Types Packs/Day Years [...] on filedocumented in this encounter Care Teams Public Health Dietitian Relationship Specialty Start Date End Date Mick Rebolledo MD PCP - General documented as of this encounter
--- OUTSIDE RECORDS SUMMARY | 2024-09-23 17:09 | XMS_ITS | Encounter Summary ---
Author Organization [facility] Address [address] [place] [address] Care Team Providers Care Glass Polisher Name Role Phone Mick Rebolledo MD Primary Care Provider Unavail able Encounter Details Date Type Department Care Team (Late st Contact Info) Description 10/10/2022 Scanned Document [facility] Department of Internal Medicine [place] [address] [place] [address] Mick Rebolledo MD Social History Tobacco Use Types Packs/Day Years [...] on filedocumented in this encounter Care Teams Glass Polisher Relationship Specialty Start Date End Date Mick Rebolledo MD PCP - General documented as of this encounter
--- OUTSIDE RECORDS SUMMARY | 2024-09-23 17:09 | XMS_ITS | Encounter Summary ---
Author Organization [facility] Address [address] [place] [address] Care Team Providers Care Cane Furniture Maker Name Role Phone Mick Rebolledo MD Primary Care Provider Unavail able Encounter Details Date Type Department Care Team (Late st Contact Info) Description 07/24/2023 Scanned Document [facility] Department of Internal Medicine [place] [address] [place] [address] Mick Rebolledo MD Social History Tobacco Use [...] on filedocumented in this encounter Care Teams Cane Furniture Maker Relationship Specialty Start Date End Date Mick Rebolledo MD PCP - General documented as of this encounter
--- OUTSIDE RECORDS SUMMARY | 2024-09-23 17:09 | XMS_ITS | Encounter Summary ---
Author Organization [facility] Address [address] [place] [address] Care Team Providers Care Director Of Enterprise Applications Name Role Phone Mick Rebolledo MD Primary Care Provider Unavail able Encounter Details Date Type Department Care Team (Late st Contact Info) Description 12/11/2022 Scanned Document [facility] Department of Internal Medicine [place] [address] [place] [address] Mick Rebolledo MD Social History Tobacco Use [...] on filedocumented in this encounter Care Teams Director Of Enterprise Applications Relationship Specialty Start Date End Date Mick Rebolledo MD PCP - General documented as of this encounter
--- OUTSIDE RECORDS SUMMARY | 2024-09-23 17:09 | XMS_ITS | Clinical Summary ---
Author Organization [facility] Address [address] [place] [phone] Phone Care Team Providers Care Over Short And Damage Clerk Name Role Phone Mick Rebolledo MD [...] Medical Devices Not on file Care Teams Over Short And Damage Clerk Relationship Specialty Start Date End Date Mick Rebolledo MD [address] [facility] [place] [address] PCP - General Internal Medicine 02/22/21 Additional Source Comments The information contained in this document represents components of the legal health record. It is not the complete legal health record.[facility]
--- OUTSIDE RECORDS SUMMARY | 2024-09-23 17:09 | XMS_ITS | Encounter Summary ---
Author Organization [facility] Address [address] [place] [address] Care Team Providers Care Clinical Rehabilitation Specialist Name Role Phone Mick Rebolledo MD Primary Care Provider Unavail able Encounter Details Date Type Department Care Team (Late st Contact Info) Description 12/05/2022 Scanned Document [facility] Department of Internal Medicine [place] [address] [place] [address] Yvette Woods APRN [address] [place] [phone] Social History Tobacco Use Types Packs/Day Years [...] on filedocumented in this encounter Care Teams Clinical Rehabilitation Specialist Relationship Specialty Start Date End Date Mick Rebolledo MD PCP - General documented as of this encounter
--- OUTSIDE RECORDS SUMMARY | 2024-09-23 17:10 | XMS_ITS | Encounter Summary ---
Author Organization [facility] Address [address] [place] [address] Care Team Providers Care Electric Arc Furnace Operator Name Role Phone Mick Rebolledo MD Primary Care Provider Unavail able Encounter Details Date Type Department Care Team (Late st Contact Info) Description 09/11/2022 Scanned Document [facility] Department of Internal Medicine [place] [address] [place] [address] Mick Rebolledo MD Social History Tobacco Use [...] on filedocumented in this encounter Care Teams Electric Arc Furnace Operator Relationship Specialty Start Date End Date Mick Rebolledo MD PCP - General documented as of this encounter
--- OUTSIDE RECORDS SUMMARY | 2024-09-23 17:10 | XMS_ITS | Clinical Summary ---
Author Organization [facility] Address [address] [place] [address] Care Team Providers Care Managed Services Sales Consultant Name Role Phone Mick Rebolledo MD Primary Care Provider [phone] Surgical History Surgery Date Site/Laterality Comments FOOT [...] age to complete this topic Care Teams Managed Services Sales Consultant Relationship Specialty Start Date End Date Mick Rebolledo MD [address] [address] PCP - General Internal Medicine 01/25/20
--- OUTSIDE RECORDS SUMMARY | 2024-09-23 17:10 | XMS_ITS | Clinical Summary ---
Author Organization [facility] Address [address] [place] [address] Care Team Providers Care Casino Banker Name Role Phone Mick Rebolledo MD Primary [...] patient's age to complete this topic Insurance [facility] Care Teams Casino Banker Relationship Specialty Start Date End Date Mick Rebolledo MD PCP - General
--- OUTSIDE RECORDS SUMMARY | 2024-09-23 17:10 | XMS_ITS | Encounter Summary ---
Author Organization [facility] Address [address] [place] [address] Care Team Providers Care Level Vial Curvature Gauger Name Role Phone Mick Rebolledo MD Primary Care Provider Unavail able Encounter Details Date Type Department Care Team (Late st Contact Info) Description 08/15/2023 Scanned Document [facility] Department of Internal Medicine [place] [address] [place] [address] Mick Rebolledo MD Social History Tobacco Use [...] on filedocumented in this encounter Care Teams Level Vial Curvature Gauger Relationship Specialty Start Date End Date Mick Rebolledo MD PCP - General documented as of this encounter
--- OUTSIDE RECORDS SUMMARY | 2024-09-23 17:10 | XMS_ITS | Encounter Summary ---
Author Organization [facility] Address [address] [place] [address] Care Team Providers Care Project Manager Finance Name Role Phone Mick Rebolledo MD Primary Care Provider Unavail able Encounter Details Date Type Department Care Team (Late st Contact Info) Description 11/12/2022 Scanned Document [facility] Department of Internal Medicine [place] [address] [place] [address] Yvette Woods APRN [address] [place] [phone] Social History Tobacco Use Types Packs/Day Years [...] on filedocumented in this encounter Care Teams Project Manager Finance Relationship Specialty Start Date End Date Mick Rebolledo MD PCP - General documented as of this encounter
--- OUTSIDE RECORDS SUMMARY | 2024-09-23 17:10 | XMS_ITS | Encounter Summary ---
Author Organization [facility] Address [address] [place] [address] Care Team Providers Care Environmental Journalist Name Role Phone Mick Rebolledo MD Primary Care Provider Unavail able Encounter Details Date Type Department Care Team (Late st Contact Info) Description 07/31/2023 Scanned Document [facility] Department of Internal Medicine [place] [address] [place] [address] Mick Rebolledo MD Social History Tobacco Use [...] on filedocumented in this encounter Care Teams Environmental Journalist Relationship Specialty Start Date End Date Mick Rebolledo MD PCP - General documented as of this encounter
--- OUTSIDE RECORDS SUMMARY | 2024-09-23 17:10 | XMS_ITS | Encounter Summary ---
Author Organization [facility] Address [address] [place] [address] Care Team Providers Care Rectifier Operator Name Role Phone Mick Rebolledo MD Primary Care Provider Unavail able Encounter Details Date Type Department Care Team (Late st Contact Info) Description 07/29/2023 Scanned Document [facility] Department of Internal Medicine [place] [address] [place] [address] Mick Rebolledo MD Social History Tobacco Use [...] on filedocumented in this encounter Care Teams Rectifier Operator Relationship Specialty Start Date End Date Mick Rebolledo MD PCP - General documented as of this encounter
--- OUTSIDE RECORDS SUMMARY | 2024-09-23 17:10 | XMS_ITS | Clinical Summary ---
Author Organization [facility] Address [address] [place] [address] Care Team Providers Care Concrete Finisher Apprentice Name Role Phone Mick Rebolledo MD [...] age to complete this topic Care Teams Concrete Finisher Apprentice Relationship Specialty Start Date End Date Mick Rebolledo MD PCP - General Internal Medicine 01/25/20
--- OUTSIDE RECORDS SUMMARY | 2024-09-23 17:10 | XMS_ITS | Encounter Summary ---
Author Organization [facility] Address [address] [place] [address] Care Team Providers Care Hadoop Consultant Name Role Phone Mick Rebolledo MD Primary Care Provider Unavail able Encounter Details Date Type Department Care Team (Late st Contact Info) Description 07/24/2023 Scanned Document [facility] Department of Internal Medicine [place] [address] [place] [address] Mick Rebolledo MD Social History Tobacco Use [...] on filedocumented in this encounter Care Teams Hadoop Consultant Relationship Specialty Start Date End Date Mick Rebolledo MD PCP - General documented as of this encounter
--- OUTSIDE RECORDS SUMMARY | 2024-09-23 17:10 | XMS_ITS | Encounter Summary ---
Author Organization [facility] Address [address] [place] [address] Care Team Providers Care Commissary Manager Name Role Phone Mick Rebolledo MD Primary Care Provider Unavail able Encounter Details Date Type Department Care Team (Late st Contact Info) Description 08/15/2023 Scanned Document [facility] Department of Internal Medicine [place] [address] [place] [address] Mick Rebolledo MD Social History Tobacco Use [...] on filedocumented in this encounter Care Teams Commissary Manager Relationship Specialty Start Date End Date Mick Rebolledo MD PCP - General documented as of this encounter
--- OUTSIDE RECORDS SUMMARY | 2024-09-23 17:10 | XMS_ITS | Encounter Summary ---
Author Organization [facility] Address [address] [place] [address] Care Team Providers Care Tape Stringer Name Role Phone Mick Rebolledo MD Primary Care Provider Unavail able Encounter Details Date Type Department Care Team (Late st Contact Info) Description 08/06/2023 Scanned Document [facility] Department of Internal Medicine [place] [address] [place] [address] Mick Rebolledo MD Social History Tobacco Use [...] on filedocumented in this encounter Care Teams Tape Stringer Relationship Specialty Start Date End Date Mick Rebolledo MD PCP - General documented as of this encounter
--- OUTSIDE RECORDS SUMMARY | 2024-09-23 17:10 | XMS_ITS | Encounter Summary ---
Author Organization [facility] Address [address] [place] [address] Care Team Providers Care Commissary Representative Name Role Phone Mick Rebolledo MD Primary Care Provider Unavail able Encounter Details Date Type Department Care Team (Late st Contact Info) Description 08/06/2023 Scanned Document [facility] Department of Internal Medicine [place] [address] [place] [address] Mick Rebolledo MD Social History Tobacco Use [...] filedocumented in this encounter Care Teams Commissary Representative Relationship Specialty Start Date End Date Mick Rebolledo MD PCP - General documented as of this encounter
== END 2024-09-23 15:04 | disposition home or self-care (01) ==
LOC: HO.HKA 14:34
PROVIDERS: Visit Provider Internal Medicine Hypertension Specialist
DX: N26.1 Atrophy of kidney (terminal) (principal)
CPT/HCPCS: 99214

== ENCOUNTER → 2024-09-23 14:33 | Outpatient (BNVA) | payer OTHER, SELFPAY | PROVIDERS: Visit Provider Internal Medicine Hypertension Specialist ==

== ENCOUNTER 2024-10-14 14:12 | Outpatient (AMB) | payer OTHER, SELFPAY ==
--- NOTE | 2024-10-14 14:19 | A.OFFVIS_ITS ---
Vital Signs 10/14/24 14:25 Height 6 ft 1 in Weight 187 lb BMI 24.7 BP 124/72 Blood Pressure Location Rt brachial Position Sitting Pulse 65 Intake Visit Reasons: unilateral inguinal hernia Intake Note: Patient referred by Dr. Johnson for Umbilical hernia. Patient c/o: bothersome for the past 2m. 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 Structural Steel Detailer Required: No Accompanied by: Self / Same As Patient Allergies No Known Allergies Allergy (Verified 10/14/24 14:24) Medication List - Last Reconciled 10/14/24 by Kj Rasmussen MD No Known Home Meds HPI HPI unilateral inguinal hernia: Details: 39-year-old male referred for a right inguinal hernia. He had gone to the ER last July, because of right-sided abdominal pain. 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 He was referred to the relocation services specialist because of this. He was diagnosed to have a right inguinal hernia incidentally. He does state that he has had pain on the right groin for several months now. He says that this seems to be worse on some days. He says that sometimes the pain would extend all the way to the scrotum and testicle. He denies dysuria. [facility] Medical History (Updated 10/14/24 @ 15:09 by Kj Rasmussen MD) Right inguinal hernia Surgical History Hx of toe surgery Family History Father Non-Hodgkin lymphoma Mother No problems noted. Social History Patient Tobacco Use Status: Current everyday Tobacco user Cigarettes Per Day: 20 Review of Systems Const Denies chills and Denies fever(s) Card Denies chest pain, Denies dyspnea and Denies dyspnea on exertion Resp Denies cough, Denies dyspnea and Denies dyspnea on exertion GI Denies hematochezia and Denies change in bowel habits Denies hematuria and Denies difficulty urinating Musc Reports back pain and Denies limited range of motion Neuro Denies focal weakness and Denies convulsions Psych Denies depression and Denies mood swings Physical Exam Vital Signs: Last Vital Signs Pulse 65 10/14/24 14:25 BP 124/72 10/14/24 14:25 BMI result Body Mass Index 24.7 Const General: comfortable and no acute distress Orientation/consciousness: patient oriented x3 Neck Neck: Yes no lymphadenopathy Resp Auscultation: clear to auscultation bilaterally Cardio Rhythm: regular rhythm GI Other: Small right inguinal hernia, palpable with Valsalva, no tenderness currently, no masses in the scrotum Palpation (GI): Soft to palpation, nontender and no guarding Neuro General: patient oriented x3 Assessment & Plan Assessment & Plan (1) Right inguinal hernia: Code(s): K40.90 - Unilateral inguinal hernia, without obstruction or gangrene, not sp ecified as recurrent Category: Medical Plan: He has a small right inguinal hernia felt on Valsalva. He says that he has had pain on the right groin specifically for several months now and this can be worse on some days I did review his CAT scan and there may be a small fat containing hernia in the right side although this is not obvious on imaging. I explained to him the option of proceeding with repair of right inguinal hernia with mesh. I reviewed the technique of this procedure. I explained the risks including but not limited to bleeding, infections, injury to bowel or the testicle and vas deferens, recurrence, postop pain, as well as the benefits and alternatives He says that in view of his episodes of pain in the right groin, he wants to proceed. Coding Level of Care Code New Pt Level 3 (83945) Diagnoses Right inguinal hernia K40.90
[2024-10-14 14:25] VITALS: BP 124/72; PULSE 65; BMI 24.7
--- OUTSIDE RECORDS SUMMARY | 2024-10-14 14:52 | XMS_ITS | Clinical Summary ---
Author Organization [facility] ity Address [address] [place] [address] Care Team Providers Care Ironworker Name Role Phone Mick Rebolledo MD Primary Care Provider [phone] Surgical History Surgery Date Site/Laterality Comments FOOT [...] age to complete this topic Care Teams Ironworker Relationship Specialty Start Date End Date Mick Rebolledo MD [address] [address] PCP - General Internal Medicine 01/25/20
--- OUTSIDE RECORDS SUMMARY | 2024-10-14 14:52 | XMS_ITS | Encounter Summary ---
Author Organization [facility] Address [address] [place] [address] Care Team Providers Care Health And Wellness Coordinator Name Role Phone Mick Rebolledo MD Primary Care Provider Unavail able Encounter Details Date Type Department Care Team (Late st Contact Info) Description 08/15/2023 Scanned Document [facility] Department of Internal Medicine [place] [address] [place] [address] Mick Rebolledo MD Social History Tobacco Use [...] on filedocumented in this encounter Care Teams Health And Wellness Coordinator Relationship Specialty Start Date End Date Mick Rebolledo MD PCP - General documented as of this encounter
--- OUTSIDE RECORDS SUMMARY | 2024-10-14 14:52 | XMS_ITS | Encounter Summary ---
Author Organization [facility] Address [address] [place] [address] Care Team Providers Care Psychologist Engineering Name Role Phone Mick Rebolledo MD Primary Care Provider Unavail able Encounter Details Date Type Department Care Team (Late st Contact Info) Description 10/10/2022 Scanned Document [facility] Department of Internal Medicine [place] [address] [place] [address] Mick Rebolledo MD Social History Tobacco Use [...] on filedocumented in this encounter Care Teams Psychologist Engineering Relationship Specialty Start Date End Date Mick Rebolledo MD PCP - General documented as of this encounter
--- OUTSIDE RECORDS SUMMARY | 2024-10-14 14:52 | XMS_ITS | Encounter Summary ---
Author Organization [facility] Address [address] [place] [address] Care Team Providers Care Toggle Press Folder And Feeder Name Role Phone Mick Rebolledo MD Primary Care Provider Unavail able Encounter Details Date Type Department Care Team (Late st Contact Info) Description 08/06/2023 Scanned Document [facility] Department of Internal Medicine [place] [address] [place] [address] Mick Rebolledo MD Social History Tobacco Use [...] on filedocumented in this encounter Care Teams Toggle Press Folder And Feeder Relationship Specialty Start Date End Date Mick Rebolledo MD PCP - General documented as of this encounter
--- OUTSIDE RECORDS SUMMARY | 2024-10-14 14:52 | XMS_ITS | Encounter Summary ---
Author Organization [facility] Address [address] [place] [address] Care Team Providers Care Dietetic Technician Registered Name Role Phone Mick Rebolledo MD Primary Care Provider Unavail able Encounter Details Date Type Department Care Team (Late st Contact Info) Description 08/15/2023 Scanned Document [facility] Department of Internal Medicine [place] [address] [place] [address] Mick Rebolledo MD Social History Tobacco Use [...] on filedocumented in this encounter Care Teams Dietetic Technician Registered Relationship Specialty Start Date End Date Mick Rebolledo MD PCP - General documented as of this encounter
--- OUTSIDE RECORDS SUMMARY | 2024-10-14 14:52 | XMS_ITS | Clinical Summary ---
Author Organization [facility] Address [address] [place] [address] Care Team Providers Care Isobutylene Operator Chief Name Role Phone Mick Rebolledo MD Primary [...] Years) (1 of 2 - PCV) 2003 COVID-19 Vaccine (2023-2 5 season) 2024 Influenza Vaccine 12/31/2024 HPV Vaccines Aged Out No longer eligi ble based on patient's age to complete this topic Insurance [facility] Care Teams Isobutylene Operator Chief Relationship Specialty Start Date End Date Mick Rebolledo MD PCP - General
--- OUTSIDE RECORDS SUMMARY | 2024-10-14 14:52 | XMS_ITS | Encounter Summary ---
Author Organization [facility] Address [address] [place] [address] Care Team Providers Care Senior Abap Developer Name Role Phone Mick Rebolledo MD Primary Care Provider Unavail able Encounter Details Date Type Department Care Team (Late st Contact Info) Description 12/05/2022 Scanned Document [facility] Department of Internal Medicine [place] [address] [place] [address] Yvette Woods APRN [address] [place] [phone] Social History Tobacco Use Types Packs/Day Years [...] on filedocumented in this encounter Care Teams Senior Abap Developer Relationship Specialty Start Date End Date Mick Rebolledo MD PCP - General documented as of this encounter
--- OUTSIDE RECORDS SUMMARY | 2024-10-14 14:52 | XMS_ITS | Clinical Summary ---
Author Organization [facility] Address [address] [place] [address] Care Team Providers Care Access Services Assistant Name Role Phone Mick Rebolledo MD Primary [...] age to complete this topic Care Teams Access Services Assistant Relationship Specialty Start Date End Date Mick Rebolledo MD PCP - General Internal Medicine 01/25/20
--- OUTSIDE RECORDS SUMMARY | 2024-10-14 14:52 | XMS_ITS | Encounter Summary ---
Author Organization [facility] Address [address] [place] [address] Care Team Providers Care Compounder Sterile Products Name Role Phone Mick Rebolledo MD Primary Care Provider Unavail able Encounter Details Date Type Department Care Team (Late st Contact Info) Description 07/31/2023 Scanned Document [facility] Department of Internal Medicine [place] [address] [place] [address] Mick Rebolledo MD Social History Tobacco Use [...] on filedocumented in this encounter Care Teams Compounder Sterile Products Relationship Specialty Start Date End Date Mick Rebolledo MD PCP - General documented as of this encounter
--- OUTSIDE RECORDS SUMMARY | 2024-10-14 14:52 | XMS_ITS | Encounter Summary ---
Author Organization [facility] Address [address] [place] [address] Care Team Providers Care Contract Lead Name Role Phone Mick Rebolledo MD Primary Care Provider Unavail able Encounter Details Date Type Department Care Team (Late st Contact Info) Description 08/06/2023 Scanned Document [facility] Department of Internal Medicine [place] [address] [place] [address] Mick Rebolledo MD Social History Tobacco Use [...] on filedocumented in this encounter Care Teams Contract Lead Relationship Specialty Start Date End Date Mick Rebolledo MD PCP - General documented as of this encounter
--- OUTSIDE RECORDS SUMMARY | 2024-10-14 14:52 | XMS_ITS | Clinical Summary ---
Author Organization [facility] Address [address] [place] [phone] Phone Care Team Providers Care Lawn Mower Name Role Phone Mick Rebolledo MD Primary [...] at Not on file Legal Sex Male 12:37 PM EDT Gender Identity Not on file Sexual Orientation [...] this topic Medical Devices Not on file Insurance [facility] [address] [place] [address] [place] [address] [facility] [address] [facility] [address] [place] [place] [address] [place] [address] [place] [address] Care Teams Lawn Mower Relationship Specialty Start Date End Date Mick Rebolledo MD [address] [facility] [place] [address] PCP - General Internal Medicine 02/22/21 Additional Source Comments The information contained in this document represents components of the legal health record. It is not the complete legal health record.[facility]
--- OUTSIDE RECORDS SUMMARY | 2024-10-14 14:52 | XMS_ITS | Encounter Summary ---
Author Organization [facility] Address [address] [place] [address] Care Team Providers Care Technical Staff Assistant Name Role Phone Mick Rebolledo MD Primary Care Provider Unavail able Encounter Details Date Type Department Care Team (Late st Contact Info) Description 07/29/2023 Scanned Document [facility] Department of Internal Medicine [place] [address] [place] [address] Mick Rebolledo MD Social History Tobacco Use [...] on filedocumented in this encounter Care Teams Technical Staff Assistant Relationship Specialty Start Date End Date Mick Rebolledo MD PCP - General documented as of this encounter
--- OUTSIDE RECORDS SUMMARY | 2024-10-14 14:52 | XMS_ITS | Encounter Summary ---
Author Organization [facility] Address [address] [place] [address] Care Team Providers Care Electrical Installer Name Role Phone Mick Rebolledo MD Primary Care Provider Unavail able Encounter Details Date Type Department Care Team (Late st Contact Info) Description 07/24/2023 Scanned Document [facility] Department of Internal Medicine [place] [address] [place] [address] Mick Rebolledo MD Social History Tobacco Use [...] on filedocumented in this encounter Care Teams Electrical Installer Relationship Specialty Start Date End Date Mick Rebolledo MD PCP - General documented as of this encounter
--- OUTSIDE RECORDS SUMMARY | 2024-10-14 14:52 | XMS_ITS | Encounter Summary ---
Author Organization [facility] Address [address] [place] [address] Care Team Providers Care Surgical Instrument Technician Name Role Phone Mick Rebolledo MD Primary Care Provider Unavail able Encounter Details Date Type Department Care Team (Late st Contact Info) Description 11/12/2022 Scanned Document [facility] Department of Internal Medicine [place] [address] [place] [address] Yvette Woods APRN [address] [place] [phone] Social History Tobacco Use Types Packs/Day Years [...] on filedocumented in this encounter Care Teams Surgical Instrument Technician Relationship Specialty Start Date End Date Mick Rebolledo MD PCP - General documented as of this encounter
--- OUTSIDE RECORDS SUMMARY | 2024-10-14 14:52 | XMS_ITS | Encounter Summary ---
Author Organization [facility] Address [address] [place] [address] Care Team Providers Care Asset Protection Greeter Name Role Phone Mick Rebolledo MD Primary Care Provider Unavail able Encounter Details Date Type Department Care Team (Late st Contact Info) Description 11/01/2022 Scanned Document [facility] Department of Internal Medicine [place] [address] [place] [address] Yvette Woods APRN [address] [place] [phone] Social History Tobacco Use Types Packs/Day Years [...] on filedocumented in this encounter Care Teams Asset Protection Greeter Relationship Specialty Start Date End Date Mick Rebolledo MD PCP - General documented as of this encounter
--- OUTSIDE RECORDS SUMMARY | 2024-10-14 14:52 | XMS_ITS | Encounter Summary ---
Author Organization [facility] Address [address] [place] [address] Care Team Providers Care Fresh Meat Grader Name Role Phone Mick Rebolledo MD Primary Care Provider Unavail able Encounter Details Date Type Department Care Team (Late st Contact Info) Description 12/11/2022 Scanned Document [facility] Department of Internal Medicine [place] [address] [place] [address] Mick Rebolledo MD Social History Tobacco Use [...] on filedocumented in this encounter Care Teams Fresh Meat Grader Relationship Specialty Start Date End Date Mick Rebolledo MD PCP - General documented as of this encounter
--- OUTSIDE RECORDS SUMMARY | 2024-10-14 14:52 | XMS_ITS | Encounter Summary ---
Author Organization [facility] Address [address] [place] [address] Care Team Providers Care Phlebotomy Manager Name Role Phone Mick Rebolledo MD Primary Care Provider Unavail able Encounter Details Date Type Department Care Team (Late st Contact Info) Description 07/24/2023 Scanned Document [facility] Department of Internal Medicine [place] [address] [place] [address] Mick Rebolledo MD Social History Tobacco Use [...] on filedocumented in this encounter Care Teams Phlebotomy Manager Relationship Specialty Start Date End Date Mick Rebolledo MD PCP - General documented as of this encounter
--- OUTSIDE RECORDS SUMMARY | 2024-10-14 14:52 | XMS_ITS | Encounter Summary ---
Author Organization [facility] Address [address] [place] [address] Care Team Providers Care First Officer Name Role Phone Mick Rebolledo MD Primary Care Provider Unavail able Encounter Details Date Type Department Care Team (Late st Contact Info) Description 09/11/2022 Scanned Document [facility] Department of Internal Medicine [place] [address] [place] [address] Mick Rebolledo MD Social History Tobacco Use [...] on filedocumented in this encounter Care Teams First Officer Relationship Specialty Start Date End Date Mick Rebolledo MD PCP - General documented as of this encounter
== END 2024-10-14 15:07 | disposition home or self-care (01) ==
LOC: HO.HGS 14:13
PROVIDERS: Visit Provider Surgery
DX: K40.90 Unilateral inguinal hernia, without obstruction or gangrene, not specified as recurrent (principal)
CPT/HCPCS: 99203

== ENCOUNTER 2024-11-01 10:36 | Outpatient (AMB) | payer OTHER, SELFPAY ==
--- NOTE | 2024-11-01 10:37 | A.OFFVIS_ITS ---
Vital Signs 11/01/24 10:38 Height 6 ft 1 in Weight 189 lb 9.561 oz BMI 25.0 BP 122/74 Blood Pressure Location Lt brachial Position Sitting Pulse 72 Intake Visit Reasons: Preop/ Grady/ murmur/ AAA/hernia repair Intake Note: Pre-op hernia repair feeling good Kennel Hand Required: No Allergies No Known Allergies Allergy (Verified 10/14/24 14:24) Medication List - Last Reconciled 11/01/24 by Mitch Ruiz MD No Known Home Meds HPI Comments Details: Gerson comes for follow-up. No new cardiac complaints. Remains pretty functional and active. Has been having some numbness on the right upper extremity and lower extremity. He denies any cardiac symptoms. No exertional chest pain or shortness of breath. No orthopnea, PND, leg edema. No exertional lightheadedness. No syncopal episodes. Currently not on aspirin therapy for unclear reasons. He is scheduled to undergo right inguinal hernia surgery for symptomatic right inguinal hernia which has been bothering for the last 6 weeks. [facility] Medical History Right inguinal hernia Surgical History Hx of toe surgery Family History Father Non-Hodgkin lymphoma Mother No problems noted. Social History Patient Tobacco Use Status: Current everyday Tobacco user Cigarettes Per Day: 20 Review of Systems Const Denies chills, Denies fatigue, Denies fever(s), Denies frequent falls, Denies weakness, Denies weight gain and Denies weight loss ENT Denies dizziness Card Denies chest pain, Denies leg edema, Denies lightheadedness, Denies palpitations, Denies dyspnea, Denies dyspnea on exertion, Denies orthopnea and Denies other (loss of consciousness) Resp Denies cough, Denies dyspnea and Denies dyspnea on exertion GI Denies hematochezia and Denies change in stool character Musc Denies abnormal gait, Denies muscle weakness, Denies numbness, Denies radiating pain into limb and Denies tingling Neuro Denies Abnormal speech present, Denies abnormal gait, Denies dizziness, Denies frequent falls, Denies numbness, Denies tingling and Denies weakness Endo Denies fatigue and Denies palpitations Physical Exam Vital Signs: Last Vital Signs Pulse 72 11/01/24 10:38 BP 122/74 11/01/24 10:38 BMI result Body Mass Index 25.0 Const General: cooperative, comfortable, no acute distress, alert, awake and Physically active Nutritional Appearance: thin Orientation/consciousness: patient oriented x3 Limitations: no limitations HEENT Head: Yes normocephalic and Yes atraumatic Neck Neck: Yes trachea midline, Yes supple and Yes no JVD Chest Chest palpation & inspection: 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) Resp Effort & Inspection: normal respiratory effort Auscultation: clear to auscultation bilaterally Cardio Jugular venous distension: no JVD Palpation: normal PMI Rate: regular rate Rhythm: regular rhythm Heart sounds: S1 normal heart sound present, S2 normal heart sound present, Clicking heart sound present (Mid systolic), no gallops, Murmur heart sound present systolic decrescendo and crescendo and no rubs GI Auscultation: normal bowel sounds Skin General skin exam: no rashes or lesions noted Neuro General: patient oriented x3 and no focal motor deficits Speech: No Abnormal speech present Extrem General: Yes no clubbing, cyanosis or edema Office Procedures EKG Details: EKG shows normal sinus rhythm with normal EKG 18937-[id number], Complete Assessment & Plan Assessment & Plan (1) Preoperative cardiovascular examination: Code(s): Z01.810 - Encounter for preprocedural cardiovascular examination Plan: Preoperative cardiovascular risk stratification in young man with good functional capacity to undergo right inguinal hernia surgery under general anesthesia. This consider low risk surgery. Patient has underlying bicuspid aortic valve with [id number] aortic stenosis. Clinically has no contraindications for undergoing noncardiac surgery in his low risk for perioperative cardiovascular morbidity mortality. He has been prescribed aspirin this can be withheld for 5-7 days prior to the surgery as per surgeon's discretion. (2) Thoracic aortic aneurysm: Code(s): I71.20 - Thoracic aortic aneurysm, without rupture, unspecified Category: Medical Plan: Mild thoracic aortic aneurysm in the past related to bicuspid aortic valve with qoyj-sh-oaeoozes aortic stenosis. No interventions required per se for the same at this point time. Follow-up echocardiogram couple of months and will follow on annual basis. Recommend low-dose aspirin therapy. Also consider lipid panel with target goal LDL less than 100 mg/dL. He is advised to avoid sudden strenuous isometric exercise. Continue maintain regular physical activity. Will follow up in the clinic in 14 months time, sooner p.r.n.. Thank you for allowing me to partake in his care Coding Level of Care Code Est Pt Level 4 (17037) Complex EM visit Add On G2211 Diagnoses Preoperative cardiovascular examination Z01.810 Thoracic aortic aneurysm I71.20 CPT Codes EKG - CPT: 53822-[id number], Complete ([id number])
[2024-11-01 10:38] VITALS: BP 122/74; PULSE 72; BMI 25.0
--- OUTSIDE RECORDS SUMMARY | 2024-11-01 11:42 | XMS_ITS | Encounter Summary ---
Author Organization [facility] Address [address] [place] [address] Care Team Providers Care Consumer Loan Underwriter Name Role Phone Mick Rebolledo MD Primary Care Provider Unavail able Encounter Details Date Type Department Care Team (Late st Contact Info) Description 07/24/2023 Scanned Document [facility] Department of Internal Medicine [place] [address] [place] [address] Mick Rebolledo MD Social History Tobacco Use [...] on filedocumented in this encounter Care Teams Consumer Loan Underwriter Relationship Specialty Start Date End Date Mick Rebolledo MD PCP - General documented as of this encounter
== END 2024-11-01 10:56 | disposition home or self-care (01) ==
LOC: HO.HCS 10:37
PROVIDERS: Visit Provider Internal Medicine Cardiovascular Disease
DX: Z01.810 Encounter for preprocedural cardiovascular examination (principal); I71.20 Thoracic aortic aneurysm, without rupture, unspecified
CPT/HCPCS: 93010; 99214

== ENCOUNTER → 2024-11-01 10:36 | Outpatient (BNVA) | payer OTHER, SELFPAY | PROVIDERS: Visit Provider Internal Medicine Cardiovascular Disease | DX: Z01.810 Encounter for preprocedural cardiovascular examination (principal); K40.91 Unilateral inguinal hernia, without obstruction or gangrene, recurrent; I71.20 Thoracic aortic aneurysm, without rupture, unspecified; F17.210 Nicotine dependence, cigarettes, uncomplicated | CPT/HCPCS: 93005 ==

== ENCOUNTER 2024-11-12 10:15 | Outpatient (AMB) | payer OTHER, SELFPAY ==
--- NOTE | 2024-11-12 10:22 | A.OFFPC_ITS ---
Vital Signs 11/12/24 10:23 Height 6 ft 0.44 in Weight 184 lb BMI 24.6 BP 110/72 Blood Pressure Location Lt brachial Position Sitting Pulse 73 Pulse Source Pulse Oximeter Temp 97.5 F Temp Source Temporal Artery Scan Pulse Oximetry (%) 97 Oxygen Delivery Method Room Air Intake Visit Reasons: establish care Intake Note: Patient is a new patient here to establish care for Hernia, Right side of body discomfort. Transferring care from Dr Mike ([facility]). Medical records have been requested and have not received. Hot Stamp Operator Required: No It Quality Assurance Analyst: Not Required per policy Accompanied by: Self / Same As Patient Allergies No Known Allergies Allergy (Verified 11/12/24 10:45) Medication List - Last Reconciled 11/12/24 by Anita Hamlin PA-C No Known Home Meds Tobacco use date assessed: 11/12/24 Dental Screening Dental Screen Date: 11/12/24 Did you have a dental visit in the last 12 months?: Yes Did you have a dental problem in the last 6 months where you did not have access to dental care?: No Was dental information given to patient?: Patient has dentist HPI establish care HPI Details 39-year-old male coming to the office fo r the 1st time.? He was seen by Cardiology 11/01/2024 for preoperative exam for right inguinal hernia considered low risk for surgery.? He is being followed for thoracic aortic aneurysm LDL goal less than 100 and monitor echocardiogram. Patient is scheduled to undergo right inguinal hernia surgery 11/16/2024. He was seen by Nephrology 08/2024 for atrophic right kidney renal function normal continue to monitor labs at this time. presenting with right-sided neuropathy and smoking cessation. The patient reports right-sided neuropathy, with symptoms of pins and needles sensation persisting for six months, affecting the entire right side of the body. He does have a history of right LE neuropathy several years prior that has been evaluated by MRI which revealed a bulging disc. Previous interventions include spinal decompression therapy and steroid injections, which provided temporary relief. The patient smokes less than a pack per day and is interested in quitting due to health concerns and family responsibilities. Previous smoking cessation attempts included Chantix and nicotine patches, with the latter being somewhat effective. The patient has kidney agenesis, requiring caution with medications metabolized through the kidneys. Reports hyperglycemia, with a family history of diabetes, and excessive soda consumption as a contributing factor. [facility] Medical History Right inguinal hernia Surgical History Hx of toe surgery Family History Father Non-Hodgkin lymphoma Mother No problems noted. 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 1. Little interest or pleasure in doing things: not at all 2. Feeling down, depressed, or hopeless: not at all 3. Trouble falling or staying asleep, or sleeping too much: not at all 4. Feeling tired or having little energy: nearly every day 5. Poor appetite or overeating: not at all 6. Feeling bad about yourself - or that you are a failure or have let yourself or your family down: not at all 7. Trouble concentrating on things, such as reading the newspaper or watching television: not at all 8. Moving or speaking so slowly that other people could have noticed. Or the opposite - being so fidgety or restless that you have been moving around a lot more than usual: not at all 9. Thoughts that you would be better off or of hurting yourself in some way: not at all Total score: 3 Depression Screening Interpretation: Positive Depression Screening Done: Yes Source: Developed by Drs. Dyllan Snyder, Betty Jay, Casper nava nd colleagues, with an educational michelle from [employer] [place] - 2. Thrive Questionnaire Date Thrive assessed: 11/12/24 I am a: Patient What is your living situation today?: I have a steady place to live Within the past 12 months, did the food you bought not last and you didn't have the money to get more?: Never true Within the past 12 months, did you worry whether your food would run out before you got money to buy more?: Never true Do you have trouble paying for medicines?: No Do you have trouble getting transportation to medical appointments?: No Do you have trouble paying your heating and electricity bill?: No Do you have trouble taking care of your child, family member or friend?: No Do you have trouble with day-to-day activities such as bathing, preparing meals, shopping, managing finances, etc.?: No Are you currently unemployed and looking for a job?: No Are you interested in more education?: No Please select the resources that you would like help with: None Currently or been in a relationship where the following occur: No concerns reported THRIVE Score: 0 AUDIT C Alcohol Use Questionnaire (AUDIT-C) 1. How often do you have a drink containing alcohol?: Never Total Score: 0 KATHERYN-7 AMB Questionnaire KATHERYN-7 Date KATHERYN - 7 assessed: 11/12/24 Feeling nervous, anxious, or on edge: 0 = Not at all Not being able to stop or control worryin = Not at all Worrying too much about different things: 1 = Several days Trouble relaxin = Several days Being so restless that it is hard to sit still: 0 = Not at all Becoming easily annoyed or irritable: 0 = Not at all Feeling afraid as if something awful might happen: 0 = Not at all Total KATHERYN-7 score (0-4 normal; 5-9 mild; 10-14 moderate; 15-21 severe): 2 Source: Developed by Drs. Dyllan Snyder, Betty Jay, Casper Carroll and colleagues, with an educational michelle from [employer] [place] - 2. Review of Systems Const Denies body aches, Denies chills, Denies fever(s), Denies headache(s) and Denies poor appetite Eyes Reports no additional complaints ENT Denies dysphagia, Denies dizziness, Denies headache(s) and Denies odynophagia Card Denies chest pain, Denies syncope, Denies edema, Denies irregular heart rhythm, Denies lightheadedness and Denies dyspnea Resp Denies cough and Denies dyspnea GI Denies abdominal pain, Denies constipation, Denies dysphagia, Denies diarrhea, Denies nausea, Denies odynophagia and Denies vomiting Reports no additional complaints Musc Reports as per HPI and Denies abnormal gait Skin/Breast Reports system reviewed and no additional complaints, except as documented Neuro Denies abnormal gait, Denies dizziness, Denies syncope and Denies headache(s) Psych Reports no additional complaints Physical exam (Primary Care) Vital Signs: Last Vital Signs Temp 97.5 F 11/12/24 10:23 Pulse 73 11/12/24 10:23 BP 110/72 11/12/24 10:23 Pulse Ox 97 11/12/24 10:23 Oxygen Delivery Method Room Air 11/12/24 10:23 BMI result Body Mass Index 24.6 Tobacco/Smoking Status: Tobacco use Status Tobacco use date assessed 11/12/24 11/12/24 10:26 Patient Tobacco Use Status Current everyday Tobacco 11/12/24 10:26 Tobacco use type Cigarette 11/12/24 10:26 e-Cigarette/Vaping Use Currently Using 11/12/24 10:32 PHQ-9: PHQ-9 Score PHQ-9: Total score 3 11/12/24 10:41 Depression Screening Interpretation: Positive Thrive Assessment: Date of Thrive Assessment Date Thrive assessed 11/12/24 11/12/24 10:26 Currently or been in a relationship where the following occur: No concerns reported Const General: cooperative, healthy appearing, comfortable and no acute distress Orientation/consciousness: patient oriented x3 HENMT Head: Yes normocephalic Ears: hearing grossly normal bilaterally General nose exam: Normal external nose present Eyes General: appearance normal, both eyes and all related structures Conjunctivae: conjunctivae normal Neck Neck: Yes full ROM and Yes no lymphadenopathy Resp Effort & Inspection: normal respiratory effort Auscultation: clear to auscultation bilaterally, no crackles, no rales, no rhonchi and no wheezes Cardio Rate: regular rate Rhythm: regular rhythm Skin General skin exam: no rashes or lesions noted Neuro General: patient oriented x3 Gait exam (Neuro): Normal gait present Extrem Other: Patient is neurovascularly intact in bilateral upper extremities. Positive right-sided Phalen's test General: Yes normal to inspection, Yes full ROM and No edema Psych Affect: normal affect Attitude: cooperative Insight: Good insight present (Psych) Judgement: Good judgement present (Psych) Coding Level of Care Code New Pt Level 4 (27190) Diagnoses Tobacco use disorder F17.200 Thoracic aortic aneurysm I71.20 Right inguinal hernia K40.90 Atrophy of right kidney N26.1 Numbness of right hand R20.0 Numbness and tingling in left hand R20.0; R20.2 Screening for diabetes mellitus Z13.1 Back pain with radiculopathy M54.10 Assessment & Plan Assessment & Plan (1) Tobacco use disorder: Code(s): F17.200 - Nicotine dependence, unspecified, uncomplicated Category: Medical Plan: Smoking cigarettes and the use of tobacco can be harmful. We discussed the importance of stopping and options to aid in smoking cessation. Discussed Chantix and Wellbutrin which was declined at this time. Prescription sent for nicotine replacement therapy. (2) Thoracic aortic aneurysm: Code(s): I71.20 - Thoracic aortic aneurysm, without rupture, unspecified Category: Medical Plan: Continue to follow with Cardiology for routine surveillance aneurysm. (3) Right inguinal hernia: Code(s): K40.90 - Unilateral inguinal hernia, without obstruction or gangrene, not specified as recurrent Category: Medical Plan: Patient is scheduled to undergo repair surgery with Dr. Rasmussen next week. (4) Atrophy of right kidney: Code(s): N26.1 - Atrophy of kidney (terminal) Category: Medical Plan: Patient was recently seen by Nephrology advised to avoid kidney irritants and stay well hydrated. Creatinine and BUN have been within normal limits. Continue to monitor kidney function at this time. (5) Numbness of right hand: Code(s): R20.0 - Anesthesia of skin Category: Medical Plan: Patient has numbness and tingling of bilateral hands right greater than left. He does have a positive Phalen's test today concerning for carpal tunnel syndrome. Plan to obtain upper extremity EMG bilaterally for further evaluation. Recommend the use of nighttime splints. Also plan to obtain cervical spine x-ray. Patient does have occasional difficulty sleeping at nighttime due to this numbness and tingling prescription was sent for gabapentin 100 mg. (6) Numbness and tingling in left hand: Code(s): R20.0 - Anesthesia of skin; R20.2 - Paresthesia of skin Category: Medical Plan: See above (7) Screening for diabetes mellitus: Code(s): Z13.1 - Encounter for screening for diabetes mellitus Category: Medical Plan: Blood work order. (8) Back pain with radiculopathy: Comment: MRI 2022 showing bulging disc Code(s): M54.10 - Radiculopathy, site unspecified Category: Medical Plan: Patient has a previous history of low back pain with right-sided radiculopathy which has been ongoing since 2022. I do not believe the lower extremity radiculopathies associated with the upper extremity numbness and tingling. Continue to monitor at this time. Plan The patient will have a cervical spine x-ray to evaluate for structural causes of the right-sided neuropathy, with a nerve conduction study to follow for further assessment. If significant findings are noted, an MRI may be pursued. Gabapentin is considered for neuropathic pain, particularly to aid sleep. Smoking cessation efforts will include nicotine patches, with bupropion as an alternative if needed. The patient is advised to reduce soda intake and increase water consumption to manage hyperglycemia and support kidney function. Dietary counseling may be beneficial for addressing sugar intake. The patient is scheduled for inguinal hernia surgery and has been instructed on postoperative care, including lifting restrictions. Follow-up appointments will monitor recovery and address any issues. Cholesterol and A1c testing are planned to evaluate cardiovascular and diabetes risk, with results to be reviewed at the next visit. This note was constructed using voice recognition software. While every effort has been made to ensure accuracy and theater usher, still areas may have been included sometimes these areas may affect the content or meeting of the given symptoms. Total time spent caring for the patient today was forty-five minutes. This includes time spent before the visit reviewing the chart, time spent during the visit, and time spent after the visit and documentation. Patient was informed and verbally consented to the use of an ambient scribe for clinic note documentation during this visit. Orders: Orders NE electromyogram (EMG) Today R20.0 - Anesthesia of skin, R20.2 - Paresthesia of skin Hemoglobin A1c Today Z13.1 - Encounter for screening for diabetes mellitus Lipid Panel Today Z13.220 - Encounter for screening for lipoid disorders Vitamin B12 and Folate Today Z13.21 - Encounter for screening for nutritional disorder XR cervical spine 2V Today R20.0 - Anesthesia of skin NE nerve conduction velocity Today R20.0 - Anesthesia of skin, R20.2 - Paresthesia of skin Medications: New nicotine 1 patch transdermal DAILY 28 ea 1RF gabapentin 100 mg PO BEDTIME 30 caps 0RF
[2024-11-12 10:23] VITALS: BP 110/72; PULSE 73; TEMP 36.4; O2SAT 97; BMI 24.6
--- OUTSIDE RECORDS SUMMARY | 2024-11-12 11:12 | XMS_ITS | Encounter Summary ---
Author Organization [facility] Address [address] [place] [address] Care Team Providers Care School Nurse Name Role Phone Mick Rebolledo MD Primary Care Provider Unavail able Encounter Details Date Type Department Care Team (Late st Contact Info) Description 07/24/2023 Scanned Document [facility] Department of Internal Medicine [place] [address] [place] [address] Mick Rebolledo MD Social History Tobacco Use [...] on filedocumented in this encounter Care Teams School Nurse Relationship Specialty Start Date End Date Mick Rebolledo MD PCP - General documented as of this encounter
== END 2024-11-12 11:31 | disposition home or self-care (01) ==
DX: F17.200 Nicotine dependence, unspecified, uncomplicated (principal); I71.20 Thoracic aortic aneurysm, without rupture, unspecified; K40.90 Unilateral inguinal hernia, without obstruction or gangrene, not specified as recurrent; N26.1 Atrophy of kidney (terminal); R20.0 Anesthesia of skin; R20.2 Paresthesia of skin; Z13.1 Encounter for screening for diabetes mellitus; M54.10 Radiculopathy, site unspecified

== ENCOUNTER 2024-11-16 10:51 | Day surgery (SDC) | payer OTHER, SELFPAY ==
[2024-11-12 11:34] VITALS: BMI 24.7
[2024-11-16] VITALS (7 sets, daily range): BP systolic 109–122; BP diastolic 69–78; PULSE 55–74; RESP 18; TEMP 36.3–36.8; O2SAT 93–98; BMI 24.9
[2024-11-16] MEDS: Lactated Ringers 1,000 ML 100 ML IVCONT (11:13)
--- NOTE | 2024-11-16 11:51 | MHC.SHP ---
Pre-Procedural Eval Section A - 24 Hr Update-Section A only Date of Service: 11/16/24 Section B - Complete if H&P > 30 days Chief Complaint: Unilateral inguinal hernia, without obstruction Details of Present Illness: Has reducible right inguinal hernia Relevant Family History (Specify if Yes): No Relevant Social History: None Present Medications: see Short Stay Collaborative assessment Medical History: Significant History (Atrophic right kidney, history of smoking, hyperlipidemia) History of Previous Operations: No relevant previous surgery Allergies: Allergies Allergy/AdvReac Type Severity Reaction Status Date / Time No Known Allergies Allergy Verified 11/16/24 11:04 Review of Systems Sugical H&P ROS: Negative: Constitution, Cardiovascular and Gastrointestinal Exam Surgical H&P Exam: Normal: Heart and Normal: Lungs and Significant Findings: Abdomen (Reducible right inguinal hernia) Plan Diagnosis/Plan: Unchanged I have reviewed the history and physical and performed a pertinent physical examination on my patient. No changes have occurred unless specified. Time Spent With Patient Time: Total time managing care of this patient today ____ minutes.
--- NOTE | 2024-11-16 12:01 | HO.ANESPROP2 ---
Documented by User: Kathy Watson NP 11/15/24 09:47 HPI - Anesthesia Eval Consult details Narrative: 39yo M for Right Repair Hernia Inguinal Reducible with mesh PMFSH Active Problems Active Problems: All Active Problems Back pain with radiculopathy (Acute) Screening for diabetes mellitus (Acute) Screening for hypercholesterolemia (Acute) Numbness and tingling in left hand (Acute) Numbness of right hand (Acute) Tobacco use disorder (Acute) Right inguinal hernia (Acute) Atrophy of right kidney (Acute) Thoracic aortic aneurysm (Acute) Past Medical History Medical History Right inguinal hernia Family History Family History Father Non-Hodgkin lymphoma Mother No problems noted. Surgical History Surgical History Hx of toe surgery Social History Social History Housing: House Are you a primary out of school hours care worker to a significant other at home: No Do you presently have visiting nurse or other home services: No Alcohol intake: never Patient Tobacco Use Status: Current everyday Tobacco user Tobacco use type: Cigarette Cigarette Packs Per Day: 1 Cigarettes Per Day: 20 Smoked in Last 30 Days: Yes e-Cigarette/Vaping Use: Currently Using Patient Interested in Nicotine Replacement: No Second Hand Smoke Exposure: Yes Substance Use Frequency: Daily Have you been hit, kicked, punched, or otherwise hurt by someone within the past year? 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 Cognitive needs: No Hearing needs: No Vision needs: No Meds Allergies Allergy/AdvReac Type Severity Reaction Status Date / Time No Known Allergies Allergy Verified 11/16/24 11:04 Home Medications ?Medication ?Instructions ?Recorded ?Confirmed ?Last Taken ?Type aspirin 81 mg tablet 81 mg PO DAILY 11/16/24 11/16/24 11/13/24 History Exam Height,Weight and Vital Signs: Height 6 ft 1 in Weight 84.822 kg Assessment and Plan Assessment Anesthesia Assessment: Chart Reviewed Documented by User: Stephanie Reardon DO 11/16/24 12:02 PMFSH Past Medical History Medical History Right inguinal hernia Family History Family History Father Non-Hodgkin lymphoma Mother No problems noted. Family history of problems with anesthesia: No Surgical History Surgical History Hx of toe surgery History of Problems with Anesthesia: No Social History Social History Housing: House Are you a primary out of school hours care worker to a significant other at home: No Do you presently have visiting nurse or other home services: No Alcohol intake: never Patient Tobacco Use Status: Current everyday Tobacco user Tobacco use type: Cigarette Cigarette Packs Per Day: 1 Cigarettes Per Day: 20 Smoked in Last 30 Days: Yes e-Cigarette/Vaping Use: Currently Using Patient Interested in Nicotine Replacement: No Second Hand Smoke Exposure: Yes Substance Use Frequency: Daily Have you been hit, kicked, punched, or otherwise hurt by someone within the past year? 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 Cognitive needs: No Hearing needs: No Vision needs: No Meds Allergies Allergy/AdvReac Type Severity Reaction Status Date / Time No Known Allergies Allergy Verified 11/16/24 11:04 Home Medications ?Medication ?Instructions ?Recorded ?Confirmed ?Last Taken ?Type aspirin 81 mg tablet 81 mg PO DAILY 11/16/24 11/16/24 11/13/24 History Exam Exam Date and Time: 11/16/24 1200 Height,Weight and Vital Signs: Height 6 ft 1 in Weight 84.822 kg Vital Signs Temperature 98.2 F 11/16/24 11:39 Pulse Rate 70 11/16/24 11:39 Respiratory Rate 18 11/16/24 11:39 Blood Pressure 109/69 11/16/24 11:39 Pulse Oximetry 97 11/16/24 11:39 Oxygen Delivery Method Room Air 11/16/24 11:39 Temperature 98.2 F 11/16/24 11:39 Pulse Rate 70 11/16/24 11:39 Respiratory Rate 18 11/16/24 11:39 Blood Pressure 109/69 11/16/24 11:39 Pulse Oximetry 97 11/16/24 11:39 Oxygen Delivery Method Room Air 11/16/24 11:39 Airway Mallampati Class: I TM Dist: >3cm Neck ROM: Full Loose/Missing/Broken Teeth: No (patient denies any loose or broken teeth) Heart: S1S2 Lungs: CTAB Assessment and Plan Assessment Anesthesia Assessment: Anesthesia Plan Discussed and Chart Reviewed Final Anesthetic Review Family History of Problems with Anesthesia: No History of Problems with Anesthesia: No NPO: Yes ASA Class: II Final Preanesthetic Review: No Changes in Pt Med Stat, Meds/Allgs Chart Reviewed, Consent Obtained/Reviewed and Anes Risks/Benef Reviewed Patient Risk: Low Procedure Risk: Low Anesthetic Plan Anesthetic Plan: GA and Agree w/ Assess. and Plan Disposition: Standard PACU
[2024-11-16] MEDS: ceFAZolin Sodium/Dextrose,Iso 2 GM/50 ML PIGGYBACK IV (12:35)
--- NOTE | 2024-11-16 13:14 | W.PM.OPN ---
Operative Note Operative Note Date of Service: 11/16/24 Narrative: Preop diagnosis: Right inguinal hernia, reducible Postop diagnosis: Right inguinal hernia, reducible, direct Procedure: Repair of right inguinal hernia with mesh Surgeon: Kj Rasmussen MD research lab assistant: AMEENA Chin The patient is a 39-year-old male with a reducible right hernia. He understood the technique of repair with mesh. He was aware of the risks, benefits, and alternatives He was brought to the operating room. He was placed supine under general anesthesia via laryngeal mask airway. The right groin was prepped and draped in the usual sterile fashion. A surgical time-out was done. The patient received cefazolin 2 g IV preoperatively I infiltrated the planned line of incision with lidocaine 1%. I made a short incision on the skin along an imaginary line from the anterior superior iliac spine to the pubic ramus with a blade 15. This was carried down through the full-thickness of the skin and subcutaneous fat with electrocautery. The external oblique aponeurosis was defined. The oblique was therefore seen. I made an incision of the aponeurosis with a blade 15 and extended this inferomedially to connect with the external ring. The inguinal canal was with a for entered. Hemostats were applied on the divided edges of the aponeurosis. I bluntly dissected the underside of the aponeurosis to create a pocket for the mesh. I then bluntly dissected the cord and its contents with the index finger until was able to pass a Lavonne drain around this. This [place] drain was used for retraction. I examined the cord and there was no sac here. However, on the floor of the canal, there was note of a hernia and this was therefore a direct hernia. I defined this hernia and reinforced this with a small-sized Prolene plug. The plug was secured with Prolene 2 sutures to the shelving edge of the inguinal meant laterally in the internal oblique medially as well as the pubic ramus inferomedially. I reinforced the floor of the canal with a keyhole mesh. The tails of the mesh were passed around the cord at the level of the internal ring and were secured together with Prolene 2-0 sutures. I secured the mesh with Prolene 2 sutures to the shelving edge of the inguinal ligament laterally and the internal oblique medially as well as the pubic ramus inferomedially. I irrigated. Once hemostasis was confirmed, I removed the [place] drain and closed the external oblique aponeurosis with a running Polysorb 2-0 stitch to re-create the external ring The subcutaneous layer was reapposed with Polysorb 3-0 simple interrupted sutures. Skin closure was achieved with Polysorb 4-0 subcuticular running stitch. The area was infiltrated with Marcaine 0.5% for postop analgesia. Dressings were applied and the procedure was completed. The patient tolerated the procedure well. There were no immediate complications initial final counts of sponges and instruments were correct. Estimated blood loss was he has an 10 cc. The patient was extubated without difficulty and transferred to the recovery room with stable vital signs.
== END 2024-11-16 14:22 | disposition home or self-care (01) ==
PROVIDERS: Visit Provider Surgery
PROC: (CPT 49505; principal; 2024-11-16 13:00)
DX: K40.90 Unilateral inguinal hernia, without obstruction or gangrene, not specified as recurrent (principal); I71.20 Thoracic aortic aneurysm, without rupture, unspecified; Z79.82 Long term (current) use of aspirin; F17.210 Nicotine dependence, cigarettes, uncomplicated; Z98.890 Other specified postprocedural states
CPT/HCPCS: 49505; C1781; J0690; J1100; J1885; J2003; J2250; J2405; J2704; J2795; J3010

== ENCOUNTER → 2024-11-16 10:51 | Outpatient (BNV) | payer OTHER, SELFPAY | PROVIDERS: Visit Provider Surgery | DX: K40.90 Unilateral inguinal hernia, without obstruction or gangrene, not specified as recurrent (principal) | CPT/HCPCS: 49505 ==

== ENCOUNTER 2024-11-29 11:06 | Outpatient (AMB) | payer OTHER, SELFPAY ==
--- NOTE | 2024-11-29 11:13 | MHC.OFFVIS ---
Vital Signs 11/29/24 11:14 Height 6 ft 1 in Weight 188 lb 11.451 oz BMI 24.9 BP 122/73 Blood Pressure Location Rt brachial Position Sitting Pulse 66 Pulse Source Pulse Oximeter Temp 98.4 F Temp Source Temporal Artery Scan Pulse Oximetry (%) 98 Oxygen Delivery Method Room Air Intake Visit Reasons: S/P RIH w/mesh Intake Note: Pt presents to the office today for a s/p RIH w/mesh. Pt state he has been having some general discomfort. Pt states he will get occasional pressure in his groin area. Allergies No Known Allergies Allergy (Verified 11/29/24 11:16) HPI HPI S/P RIH w/mesh: Details: Mr. Christian presents for follow up. He underwent repair of right inguinal hernia with mesh on 11/16/[address] Rasmussen. He tolerated the procedure well. He needed pain medication for a few days following but stopped taking them due to constipation. He is back to his normal bowel habits of 1-2 BMs a day. He denies significant incisional pain but has some discomfort with exertion. He had some scrotal swelling post operatively but this is much improved and now minimal. He is asking about resuming heavy lifting. He has no other concerns. [facility] Medical History Smoker Right inguinal hernia Surgical History History of right inguinal hernia repair (11/16/24) Hx of toe surgery Family History Father Non-Hodgkin lymphoma Mother No problems noted. 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 incision site- steri stripes removed, incision well approximated and healing well, no erythema, mild induration of inferior aspect of incision, mildly tender Palpation (GI): Soft to palpation Skin General skin exam: no rashes or lesions noted Neuro General: patient oriented x3 and moves all extremities Assessment & Plan Assessment & Plan (1) S/P right inguinal hernia repair, follow-up exam: Code(s): Z09 - Encounter for follow-up examination after completed treatment for conditions other than malignant neoplasm Category: Surgical Plan Mr. Christian is almost 2 weeks s/p right inguinal hernia repair with mesh. He tolerated the procedure well. His incision is healing well with mild induration, no evidence of wound infection or hernia recurrence. He was encouraged to use warm packs to the incision site to help reduce the indurated tissue. He was educated to continue no heavy lifting or strenuous activities for another 4 weeks. He is to follow up in 1 month for reexamination. Coding Level of Care Code Global (84822) Diagnoses S/P right inguinal hernia repair, follow-up exam Z09
[2024-11-29 11:14] VITALS: BP 122/73; PULSE 66; TEMP 36.9; O2SAT 98; BMI 24.9
--- OUTSIDE RECORDS SUMMARY | 2024-11-29 11:59 | XMS_ITS | Encounter Summary ---
Author Organization [facility] Address [address] [place] [address] Care Team Providers Care Traffic Sign Erection Supervisor Name Role Phone Mick Rebolledo MD Primary Care Provider Unavail able Encounter Details Date Type Department Care Team (Late st Contact Info) Description 07/24/2023 Scanned Document [facility] Department of Internal Medicine [place] [address] [place] [address] Mick Rebolledo MD Social History Tobacco Use [...] on filedocumented in this encounter Care Teams Traffic Sign Erection Supervisor Relationship Specialty Start Date End Date Mick Rebolledo MD PCP - General documented as of this encounter
== END 2024-11-29 11:29 | disposition home or self-care (01) ==
LOC: HO.HGS 11:07
PROVIDERS: Visit Provider Surgery
DX: Z09 Encounter for follow-up examination after completed treatment for conditions other than malignant neoplasm (principal)
CPT/HCPCS: 99024

== ENCOUNTER 2024-12-28 09:42 | Outpatient (REF) | payer OTHER, SELFPAY ==
--- NOTE | 2024-12-28 09:44 | EMG_ITS ---
Please see the attached neurophysiology report MTDD
--- OUTSIDE RECORDS SUMMARY | 2024-12-28 10:17 | XMS_ITS | Clinical Summary ---
Author Organization [facility] Address [address] [place] [address] Phone Care Team Providers Care Front Office Specialist Name Role Phone Mick Rebolledo MD [...] 71 02/22/2021 1:02 PM EDT Temperature 36.8 C (98.2 F) 02/22/2021 1:02 PM EDT Respiratory Rate - - Oxygen Saturation 98% [...] years) (1 of 2 - PCV) 2003 COVID-19 VACCINE ( - 2023-2 5 season) 2024 HEPATITIS A VACCINES Aged Out No long er eligible based on patient's age to complete this topic HIB VACCINES Aged Out No longer eligi ble based on patient's age to complete this topic MENINGOCOCCAL VACCINES (ACWY) Aged Out No longer eligible based on patient's age to complete this topic MENINGOCOCCAL VACCINES (B) Aged Out N o longer eligible based on patient's age to complete this topic Medical Devices Not on file [facility] [address] [place] [place] [address] [address] [place] [place] [address] [place] [address] [address] HMO Care Teams Front Office Specialist Relationship Specialty Start Date End Date Mick Rebolledo MD [address] [place] [address] PCP - General Internal Medicine 02/22/21 Additional Source Comments The information contained in this document represents components of the legal health record. It is not the complete legal health record.[facility]
--- OUTSIDE RECORDS SUMMARY | 2024-12-28 10:17 | XMS_ITS | Clinical Summary ---
Author Organization [facility] Address [address] [place] [address] Care Team Providers Care Assurance Assistant Name Role Phone Mick Rebolledo MD [...] - - Pulse - - Temperature 36.7 C (98 F) 02/25/2020 8:08 AM EDT Respiratory Rate - [...] (1 - Tdap) 2003 Influenza Vaccine (#1) 2025 RSV Ped < 20 months Aged Out No longe r eligible based on patient's age to complete this topic Care Teams Assurance Assistant Relationship Specialty Start Date End Date Mick Rebolledo MD PCP - General Internal Medicine 01/25/20
--- OUTSIDE RECORDS SUMMARY | 2024-12-28 10:17 | XMS_ITS | Encounter Summary ---
Author Organization [facility] Address [address] [place] [address] Care Team Providers Care Horse Racing Analyst Name Role Phone Mick Rebolledo MD Primary Care Provider Unavail able Encounter Details Date Type Department Care Team (Late st Contact Info) Description 07/24/2023 Scanned Document [facility] Department of Internal Medicine [place] [address] [place] [address] Mick Rebolledo MD Social History Tobacco Use [...] on filedocumented in this encounter Care Teams Horse Racing Analyst Relationship Specialty Start Date End Date Mick Rebolledo MD PCP - General documented as of this encounter
--- OUTSIDE RECORDS SUMMARY | 2024-12-28 10:17 | XMS_ITS ---
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 Encounters Encounter Type Encounter Reason Primary Diagnosis Location Date Ambulatory Lumbago with sciatica, right side Lumbago with sciatica, right side [facility] 07/20/2023 Ambulatory Encounter for general adult medical examination without abnormal findings [facility] 08/09/2022 Care Team Organization Name Specialty Phone Email Start Date End Da te [facility] Mick Rebolledo Primary Care 08/09/2022 [facility] MICK REBOLLEDO Primary Care 08/09/2022 08/10/19 23
--- OUTSIDE RECORDS SUMMARY | 2024-12-28 10:17 | XMS_ITS | Clinical Summary ---
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 Family History Medical History Relation Name Comments No Known Problems Brother No Known Problems Father No Known Problems Mother Relation Name Status Comments Brother Alive Father Alive Mother Alive Social History Tobacco Use Types Packs/Day Years Used Date Smoking Tobacco: Every Day Cigarettes 1 21.4 Started: 07/21/2003 Smokeless Tobacco: Never Alcohol Use [...] - 19+ 3-dose series) 2003 COVID-19 Vaccine ( - 2023-2 5 season) 2024 Depression Screening 06/02/2024 Influenza Vaccine (#1) 2025 HIB Vaccines Aged Out No longer [...] 5 Years) and At-Risk Patients (6 to 49 Years) Aged Out No longer eligible b ased on patient's age to complete this topic RSV Immunization Patients Un viv 20 months Aged Out No longer eligible b ased on patient's age to complete this topic Varicella Vaccines Aged Out No longer eligible based on patient's age to complete this topic Care Teams Language Pathologist Relationship Specialty Start Date End Date Mick Rebolledo MD [address] [address] PCP - General Internal Medicine 01/25/20
[2024-12-28 10:52] LABS: Hemoglobin A1C 126.5810 umol/L; Total Hemoglobin (HGBA1C) 4126.9397 umol/L
[2024-12-28 11:17] LABS: Cholesterol 175 mg/dL (<200); HDL Cholesterol 28 mg/dL (>40); Triglycerides 147 mg/dL (<150)
[2024-12-28 11:47] LABS: Folate 14.2 ng/mL (> or = 4.0); Vitamin B12 323 pg/mL (200-900)
== END 2024-12-28 09:43 | disposition home or self-care (01) ==
LOC: HO.NEURO 09:42
DX: R20.0 Anesthesia of skin (principal); R20.2 Paresthesia of skin; Z13.21 Encounter for screening for nutritional disorder; Z13.1 Encounter for screening for diabetes mellitus; Z13.220 Encounter for screening for lipoid disorders
CPT/HCPCS: 36415; 80061; 82607; 82746; 83036; 95886; 95911

== ENCOUNTER → 2024-12-28 09:44 | Outpatient (BNV) | payer OTHER, SELFPAY | PROVIDERS: Visit Provider Psychiatry & Neurology Neurology | DX: M79.641 Pain in right hand (principal); M79.642 Pain in left hand; R20.2 Paresthesia of skin | CPT/HCPCS: 95886; 95911 ==

== ENCOUNTER → 2025-01-03 13:50 | Outpatient (REF) | payer OTHER, SELFPAY ==
--- NOTE | 2025-01-03 13:52 | CA_ITS ---
Transthoracic Echocardiogram Patient (Last, First, Middle): Gerson Christian R Gender: Male Date of : 1985 Age: 39 Procedure Date: 01/03/2025 Procedure Type: Transthoracic Echocardiogram Location: OP Height: 185.42 cm Weight: 85.28 kg BSA: 2.10 m2 Heart Rate: 60 bpm BP: 122 / 73 mmHg Hearing Instrument Specialist: BILL Referring MD: Mitch Ruiz MD Symptoms: I71.20 - Thoracic aortic aneurysm, without rupture, unspecified Study Quality: Fair ECG Rhythm: Sinus Conclusions: - The left ventricular systolic function is normal. The calculated ejection fraction is 67% by biplane method. - There is mild aortic valve stenosis. Unable to differentiate if trileaflet or bicuspid. - There is mild dilatation of the ascending aorta measuring 4.30 cm. Findings Left Ventricle Normal left ventricular cavity size. There is normal left ventricular wall thickness. The left ventricular systolic function is normal. The calculated ejection fraction is 67% by biplane method. There is no evidence of regional wall motion abnormalities. Diastolic function is normal for age. Right Ventricle Normal right ventricular cavity size and systolic function. Atria Both atria are normal in size. Aortic Valve The aortic valve was not well visualized. There is mild aortic valve stenosis. There is no aortic valve regurgitation. Unable to differentiate if trileaflet or bicuspid. Mitral Valve The mitral valve appears normal. There is no mitral valve regurgitation. There is no mitral valve stenosis. Pulmonic Valve The pulmonic valve is likely normal. Tricuspid Valve There is mild tricuspid valve regurgitation. There is no evidence of pulmonary hypertension. Great Vessels There is mild dilatation of the ascending aorta measuring 4.30 cm. Venous The inferior vena cava is normal in size and collapses greater than 50% with inspiration. Pericardium/Pleural There is no evidence of pericardial effusion. Prior Study Comparison No significant change compared to prior study dated: 12/10/2023. Measurements 2D Linear Measurements IVSd: 0.78 0.6-0.9/0.6-1.0 cm LVIDd: 4.88 3.9-5.3/4.2-5.9 cm LVIDd Index: 2.32 2.4-3.2/2.2-3.1 cm/m2 LVIDs: 3.52 2.0-3.6 cm LVPWd: 0.80 0.7-1.1 cm LA Diam: 3.30 2.7-3.8/3.0-4.0 cm LAIDs Index: 1.57 1.5-2.3 cm/m2 LV Mass: 159.25 67-162/88-224 g LV Mass Index: 75.83 43-95/49-115 g/m2 LVOT Diam: 2.30 3.0+(-)1.3 cm 2D Systolic Function EF 4C: 63.60 >55% EF 2C: 69.20 >55% EF BiP: 66.60 >55% Mitral Valve MV Pk E: 0.63 MV PK A: 0.69 MV Decel Time: 229.00 E/A: 0.90 E'Lateral: 11.70 E'Medial: 7.18 E/E' Med: 8.80 E/E' Lat: 5.40 PHT: 67.00 MVA PHT: 3.28 Decel [place]: 2.77 Aortic Valve AoV Pk Garrett: 2.75 AoV Mn Garrett: 1.91 AoV VTI: 0.59 AoV Pk Grad: 30.00 Aov Mn Grad: 17.00 ROXY Cont.VTI: 1.88 LVOT LVOT Pk Garrett: 1.33 LVOT Mn Garrett: 0.82 LVOT VTI: 0.27 LVOT Pk Grad: 7.00 LVOT Mn Grad: 3.00 LVOT Diam: 2.30 LVOT Area: 4.15 Diastolic Function MV Pk E: 0.63 MV Pk A: 0.69 E/A: 0.90 E'Medial: 7.18 E/E' Med: 8.80 E' Laterial: 11.70 E/E' Lat: 5.40 Right Ventricle TAPSE (mm): 21.10 TVS' Garrett: 11.30 Tricuspid Valve TR Pk Garrett: 2.08 TR Pk Grad: 17.00 RA Press: 3.00 RVSP: 20.00 Great Vessels Aorta Sinus of Valsalva: 2.79 2.0-3.5 cm Ao Asc: 4.30 2.1-3.4 cm Ao Arch: 2.70 Updated in Other Vendor System with Status of Final Conner Underwood MD electronically signed on 01/04/2025 3:34:43 PM with status of Final
--- OUTSIDE RECORDS SUMMARY | 2025-01-03 14:02 | XMS_ITS | Clinical Summary ---
Author Organization [facility] Address [address] [place] [address] Phone Care Team Providers Care Executive Vice President And Chief Operating Officer Name Role Phone Mick Rebolledo MD [...] topic Medical Devices Not on file Insurance [facility] [address] [address] [place], [place] [address] [facility] [facility] [address] [place] [address] [place], [place] [address] [address] HMO Care Teams Executive Vice President And Chief Operating Officer Relationship Specialty Start Date End Date Mick Rebolledo MD [address] [place] [address] PCP - General Internal Medicine 02/22/21 Additional Source Comments The information contained in this document represents components of the legal health record. It is not the complete legal health record.[facility]
--- OUTSIDE RECORDS SUMMARY | 2025-01-03 14:02 | XMS_ITS | Clinical Summary ---
Author Organization [facility] Address [address] [place] [address] Care Team Providers Care Therapy Director Name Role Phone Mick Rebolledo MD [...] age to complete this topic Care Teams Therapy Director Relationship Specialty Start Date End Date Mick Rebolledo MD PCP - General Internal Medicine 01/25/20
--- OUTSIDE RECORDS SUMMARY | 2025-01-03 14:02 | XMS_ITS | Clinical Summary ---
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
--- OUTSIDE RECORDS SUMMARY | 2025-01-03 14:02 | XMS_ITS | Encounter Summary ---
Author Organization [facility] Address [address] [place] [address] Care Team Providers Care Television News Reporter Name Role Phone Mick Rebolledo MD Primary Care Provider Unavail able Encounter Details Date Type Department Care Team (Late st Contact Info) Description 07/24/2023 Scanned Document [facility] Department of Internal Medicine [place] [address] [place] [address] Mick Rebolledo MD Social History Tobacco Use [...] on filedocumented in this encounter Care Teams Television News Reporter Relationship Specialty Start Date End Date Mick Rebolledo MD PCP - General documented as of this encounter
== END ==
LOC: HO.CARD 13:50
PROVIDERS: Visit Provider Internal Medicine Cardiovascular Disease
DX: I71.20 Thoracic aortic aneurysm, without rupture, unspecified (principal)
CPT/HCPCS: 93306

== ENCOUNTER → 2025-01-03 13:52 | Outpatient (BNV) | payer OTHER, SELFPAY | PROVIDERS: Visit Provider Internal Medicine | DX: I51.89 Other ill-defined heart diseases (principal); I37.1 Nonrheumatic pulmonary valve insufficiency | CPT/HCPCS: 93306 ==

== ENCOUNTER 2025-01-12 08:38 | Outpatient (AMB) | payer OTHER, SELFPAY ==
--- NOTE | 2025-01-12 08:40 | MHC.OFFVIS ---
Vital Signs 01/12/25 08:46 Height 6 ft 1 in Weight 191 lb BMI 25.2 BP 138/86 Blood Pressure Location Rt brachial Position Sitting Pulse 68 Intake Visit Reasons: s/p RIH w/mesh Intake Note: Patient here 2m s/p right inguinal hernia with mesh repair. Patient c/o: surgical site feels hard. Feeling a lot better. Still discomfort around scrotum, inner thighs. Taking Tylenol as needed. Surgery: 11-16-2024 Timber Management Specialist Required: No Accompanied by: Self / Same As Patient Allergies No Known Allergies Allergy (Verified 01/12/25 08:45) HPI HPI s/p RIH w/mesh: Details: He is here for follow-up after right inguinal hernia repair with mesh last October,. He continues to do well. He denies any significant complaints. [facility] Medical History Smoker Right inguinal hernia Surgical History History of right inguinal hernia repair (11/16/24) Hx of toe surgery Family History Father Non-Hodgkin lymphoma Mother No problems noted. 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 Cognitive needs: No Hearing needs: No Vision needs: No Review of Systems Const Denies chills and Denies fever(s) GI Denies abdominal pain Physical Exam Vital Signs: Last Vital Signs Pulse 68 01/12/25 08:46 BP 138/86 01/12/25 08:46 BMI result Body Mass Index 25.2 Const General: comfortable and no acute distress GI Other: Right inguinal hernia repair site well healed, repair intact Assessment & Plan Assessment & Plan (1) S/P right inguinal hernia repair, follow-up exam: Code(s): Z09 - Encounter for follow-up examination after completed treatment for conditions other than malignant neoplasm Category: Surgical Plan: He continues to do well. His hernia repair site is intact. He is allowed to resume regular level of thick this. He can follow up on a p.r.n. basis. Coding Level of Care Code Global (24704) Diagnoses S/P right inguinal hernia repair, follow-up exam Z09
[2025-01-12 08:46] VITALS: BP 138/86; PULSE 68; BMI 25.2
--- OUTSIDE RECORDS SUMMARY | 2025-01-12 08:51 | XMS_ITS | Clinical Summary ---
Author Organization [facility] Address [address] [place] [address] Phone Care Team Providers Care Registered Safety Engineer Name Role Phone Mick Rebolledo MD Primary [...] Medical Devices Not on file [facility] [address] [place], [place] [address] [address] [place] [place] [address] [place], [place] [address] [place] [address] HMO Care Teams Registered Safety Engineer Relationship Specialty Start Date End Date Mick Rebolledo MD [address] [place] [address] PCP - General Internal Medicine 02/22/21 Additional Source Comments The information contained in this document represents components of the legal health record. It is not the complete legal health record.[facility]
--- OUTSIDE RECORDS SUMMARY | 2025-01-12 08:51 | XMS_ITS | Encounter Summary ---
Author Organization [facility] Address [address] [place] [address] Care Team Providers Care Factory Superintendent Name Role Phone Mick Rebolledo MD Primary Care Provider Unavail able Encounter Details Date Type Department Care Team (Late st Contact Info) Description 07/24/2023 Scanned Document [facility] Department of Internal Medicine [place] [address] [place] [address] Mick Rebolledo MD Social History Tobacco Use [...] on filedocumented in this encounter Care Teams Factory Superintendent Relationship Specialty Start Date End Date Mick Rebolledo MD PCP - General documented as of this encounter
--- OUTSIDE RECORDS SUMMARY | 2025-01-12 08:51 | XMS_ITS | Clinical Summary ---
Author Organization [facility] Address [address] [place] [address] Care Team Providers Care Geothermal Production Manager Name Role Phone Mick Rebolledo MD [...] age to complete this topic Care Teams Geothermal Production Manager Relationship Specialty Start Date End Date Mick Rebolledo MD PCP - General Internal Medicine 01/25/20
--- OUTSIDE RECORDS SUMMARY | 2025-01-12 08:51 | XMS_ITS | Clinical Summary ---
Author Organization [facility] ity Address [address] [place] [address] Care Team Providers Care Sales Representative Business Courses Name Role Phone Mick Rebolledo MD Primary Care Provider [phone] Surgical History Surgery Date Site/Laterality Comments FOOT [...] age to complete this topic Care Teams Sales Representative Business Courses Relationship Specialty Start Date End Date Mick Rebolledo MD [address] [address] PCP - General Internal Medicine 01/25/20
== END 2025-01-12 08:50 | disposition home or self-care (01) ==
LOC: HO.HGS 08:39
PROVIDERS: Visit Provider Surgery
DX: Z09 Encounter for follow-up examination after completed treatment for conditions other than malignant neoplasm (principal)
CPT/HCPCS: 99024

== ENCOUNTER 2025-02-16 10:40 | Outpatient (AMB) | payer OTHER, SELFPAY ==
--- NOTE | 2025-02-16 10:47 | A.OFFPC_ITS ---
Vital Signs 3 02/16/25 10:49 Height 6 ft 1 in Weight 188 lb 6 oz BMI 24.9 BP 116/60 Blood Pressure Location Lt brachial Position Sitting Pulse 70 Pulse Source Pulse Oximeter Pulse Oximetry (%) 98 Oxygen Delivery Method Room Air Intake Visit Reasons: annual exam Web Knitter Required: No Accompanied by: Self / Same As Patient Allergies No Known Allergies Allergy (Verified 02/16/25 11:01) Medication List - Last Reconciled 02/16/25 by Anita Hamlin PA-C aspirin 81 mg PO DAILY gabapentin 100 mg PO BEDTIME ibuprofen 600 mg PO Q6H PRN nicotine 1 patch transdermal DAILY Tobacco use date assessed: 02/16/25 Dental Screening Dental Screen Date: 02/16/25 Did you have a dental visit in the last 12 months?: Yes Did you have a dental problem in the last 6 months where you did not have access to dental care?: No Was dental information given to patient?: Patient has dentist HPI annual exam 2 HPI0 Details 39-year-old male with past medical histo ry of thoracic aortic aneurysm, tobacco use disorder, atrophy of the right kidney and chronic back pain last seen 10/2024 coming in for annual exam. In review of the notes, patient underwent inguinal hernia repair 11/16/2024 and was seen postoperatively 01/12/2025 allowed to resume regular level activity and follow up as needed. Presenting for an annual wellness visit and evaluation of persistent neck and shoulder pain. The patient underwent hernia repair, which initially seemed successful, but he continues to experience discomfort similar to pre-surgery levels. He continues to have suprapubic pressure while urinating. The patient reports significant discomfort in the neck radiating to the shoulder blade, with associated numbness and tingling in the arms and hands. This has been a persistent issue, exacerbated by certain activities and positions. The patient has multiple cysts on his back, previously identified by a primary care provider. These cysts are not currently painful but are noted to be itchy at times. The patient smokes half a pack of cigarettes daily and is using nicotine patches to reduce intake, with plans to decrease the dosage. Recent blood work indicated slightly elevated cholesterol levels, though within acceptable limits. The patient is advised to manage this through diet and exercise. The patient is advised to receive a tetanus vaccination due to his occupation in [employer], which involves exposure to soil. He believes he us UTD on this vaccine. Vaccinations: believes he is UTD [facility] Medical History Smoker Right inguinal hernia Surgical History History of right inguinal hernia repair (11/16/24) Hx of toe surgery Family History Father Non-Hodgkin lymphoma Mother No problems noted. 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 1. Little interest or pleasure in doing things: not at all 2. Feeling down, depressed, or hopeless: not at all 3. Trouble falling or staying asleep, or sleeping too much: not at all 4. Feeling tired or having little energy: nearly every day 5. Poor appetite or overeating: not at all 6. Feeling bad about yourself - or that you are a failure or have let yourself or your family down: not at all 7. Trouble concentrating on things, such as reading the newspaper or watching television: not at all 8. Moving or speaking so slowly that other people could have noticed. Or the opposite - being so fidgety or restless that you have been moving around a lot more than usual: not at all 9. Thoughts that you would be better off or of hurting yourself in some way: not at all Total score: 3 Depression Screening Interpretation: Negative Depression Screening Done: Yes Source: Developed by Drs. Dyllan Snyder, Betty B.WCasper Wadsworth and colleagues, with an educational michelle from [employer]. Thrive Questionnaire Date Thrive assessed: 11/12/24 I am a: Patient What is your living situation today?: I have a steady place to live Within the past 12 months, did the food you bought not last and you didn't have the money to get more?: Never true Within the past 12 months, did you worry whether your food would run out before you got money to buy more?: Never true Do you have trouble paying for medicines?: No Do you have trouble getting transportation to medical appointments?: No Do you have trouble paying your heating and electricity bill?: No Do you have trouble taking care of your child, family member or friend?: No Do you have trouble with day-to-day activities such as bathing, preparing meals, shopping, managing finances, etc.?: No Are you currently unemployed and looking for a job?: No Are you interested in more education?: No Please select the resources that you would like help with: None Currently or been in a relationship where the following occur: No concerns reported THRIVE Score: 0 KATHERYN-7 AMB Questionnaire KATHERYN-7 Date KATHERYN - 7 assessed: 11/12/24 Feeling nervous, anxious, or on edge: 0 = Not at all Not being able to stop or control worryin = Not at all Worrying too much about different things: 1 = Several days Trouble relaxin = Several days Being so restless that it is hard to sit still: 0 = Not at all Becoming easily annoyed or irritable: 0 = Not at all Feeling afraid as if something awful might happen: 0 = Not at all Total KATHERYN-7 score (0-4 normal; 5-9 mild; 10-14 moderate; 15-21 severe): 2 Source: Developed by Drs. Dyllan Snyder, Casper Hartman and colleagues, with an educational michelle from [employer]. Review of Systems Const Denies body aches, Denies chills, Denies fever(s), Denies headache(s) and Denies poor appetite Eyes Reports no additional complaints ENT Denies dysphagia, Denies dizziness, Denies headache(s) and Denies odynophagia Card Denies chest pain, Denies syncope, Denies edema, Denies irregular heart rhythm, Denies lightheadedness and Denies dyspnea Resp Denies cough and Denies dyspnea GI Reports as per HPI, Denies abdominal pain, Denies constipation, Denies dysphagia, Denies diarrhea, Denies nausea, Denies odynophagia and Denies vomiting Reports as per HPI Musc Reports as per HPI and Denies abnormal gait Skin/Breast Reports system reviewed and no additional complaints, except as documented Neuro Denies abnormal gait, Denies dizziness, Denies syncope and Denies headache(s) Psych Reports no additional complaints Physical exam (Primary Care) Vital Signs: Last Vital Signs Pulse 70 02/16/25 10:49 BP 116/60 02/16/25 10:49 Pulse Ox 98 02/16/25 10:49 Oxygen Delivery Method Room Air 02/16/25 10:49 BMI result Body Mass Index 24.9 Tobacco/Smoking Status: Tobacco use Status Tobacco use date assessed 02/16/25 02/16/25 10:50 Patient Tobacco Use Status Current everyday Tobacco 02/16/25 10:50 Tobacco use type Cigarette 02/16/25 10:50 e-Cigarette/Vaping Use Currently Using 02/16/25 10:50 PHQ-9: PHQ-9 Score PHQ-9: Total score 3 02/16/25 11:08 Depression Screening Interpretation: Negative Thrive Assessment: Date of Thrive Assessment Date Thrive assessed 11/12/24 02/16/25 10:50 Currently or been in a relationship where the following occur: No concerns reported Const General: cooperative, healthy appearing, comfortable and no acute distress Orientation/consciousness: patient oriented x3 HENMT Head: Yes normocephalic Ears: hearing grossly normal bilaterally General nose exam: Normal external nose present Face and sinus: Yes normal facial exam and Yes sinuses nontender Mouth: Normal oral and palatal mucosa present and tongue normal Throat: Yes posterior oropharynx normal Eyes General: appearance normal, both eyes and all related structures Conjunctivae: conjunctivae normal Pupils: Equal, round and reactive pupils present EOM: EOMs intact bilaterally and No Nystagmus present Neck Neck: Yes full ROM and Yes no lymphadenopathy Chest Chest palpation & inspection: normal inspection of the chest Resp Effort & Inspection: normal respiratory effort Auscultation: clear to auscultation bilaterally, no crackles, no rales, no rhonchi and no wheezes Cardio Rate: regular rate Rhythm: regular rhythm Peripheral pulses: radial pulses present and dorsalis pedis present GI Inspection: Yes normal to inspection and No Abdominal wall edema Palpation (GI): Soft to palpation, not firm and nontender Auscultation: normal bowel sounds Rectal Exam - Male: Yes deferred General: Yes no CVA tenderness Back/Spine/Pelvis Other: No tenderness to palpation over cervical spine paraspinal muscles Back: no CVA tenderness Skin General skin exam: no rashes or lesions noted Full body images: 2 1. Soft, nontender mass with smooth borders 2. Soft, nontender mass with smooth borders Neuro General: patient oriented x3 Cranial nerves: Yes Equal, round and reactive pupils present, Yes Midline tongue present, Yes Ability to bilaterally elevate shoulders present and No Nystagmus present Gait exam (Neuro): Normal gait present Extrem Other: Intact strength, sensation, pulses in bilateral upper extremities General: Yes normal to inspection, Yes full ROM and No edema Psych Speech and movement: Normal speech and movement present Affect: normal affect Attitude: cooperative Insight: Good insight present (Psych) Judgement: Good judgement present (Psych) Coding Level of Care Code Est Pt Prev Care 40-64y(56646) Diagnoses Tobacco use disorder F17.200 Thoracic aortic aneurysm I71.20 Atrophy of right kidney N26.1 Numbness of right hand R20.0 Numbness and tingling in left hand R20.0; R20.2 Back pain with radiculopathy M54.10 Neck pain M54.2 Suprapubic pressure R10.2 Jock itch B35.6 Assessment & Plan Assessment & Plan (1) Tobacco use disorder: Code(s): F17.200 - Nicotine dependence, unspecified, uncomplicated Category: Medical Plan: Smoking cigarettes and the use of tobacco can be harmful. We discussed the importance of stopping and options to aid in smoking cessation. Discussed Chantix and Wellbutrin which was declined at this time. Prescription sent for nicotine replacement therapy at a lower dose today. (2) Thoracic aortic aneurysm: Code(s): I71.20 - Thoracic aortic aneurysm, without rupture, unspecified Category: Medical Plan: Continue to follow with Cardiology for routine surveillance aneurysm. (3) Atrophy of right kidney: Code(s): N26.1 - Atrophy of kidney (terminal) Category: Medical Plan: Patient was recently seen by Nephrology advised to avoid kidney irritants and stay well hydrated. Creatinine and BUN have been within normal limits. Continue to monitor kidney function at this time. (4) Numbness of right hand: Code(s): R20.0 - Anesthesia of skin Category: Medical Plan: Patient has numbness and tingling of bilateral hands right greater than left. His most recent EMG was within normal limits. (5) Numbness and tingling in left hand: Code(s): R20.0 - Anesthesia of skin; R20.2 - Paresthesia of skin Category: Medical Plan: See above (6) Back pain with radiculopathy: Comment: MRI 2022 showing bulging disc Code(s): M54.10 - Radiculopathy, site unspecified Category: Medical Plan: Patient has a previous history of low back pain with right-sided radiculopathy which has been ongoing since 2022. I do not believe the lower extremity radiculopathies associated with the upper extremity numbness and tingling. Continue to monitor at this time. Recommend gentle stretching, massage, heating pad and Tylenol and ibuprofen as needed. (7) Neck pain: Code(s): M54.2 - Cervicalgia Category: Medical Plan: For the neck pain I advised the patient to try different pillows to see if this relieves the pain. It appears to be muscular in origin but plan to obtain cervical spine x-ray for further evaluation as well. He may use massage therapy, heating pads, Tylenol and ibuprofen as needed. Declining physical therapy or referral to specialist today (8) Suprapubic pressure: Code(s): R10.2 - Pelvic and perineal pain Category: Medical Plan: For suprapubic pressure while urinating plan to obtain Urology consult for further evaluation. Referral was placed today (9) Jock itch: Code(s): B35.6 - Tinea cruris Category: Medical Plan: Reported jock itch of the groin declining exam today. Prescription for clotrimazole and nystatin powder sent to pharmacy. If symptoms do not improve advised patient he needs to reach out to the office and undergo exam. Plan This note was constructed using voice recognition software. While every effort has been made to ensure accuracy and radiology transcriptionist, still areas may have been included sometimes these areas may affect the content or meeting of the given symptoms. Total time spent caring for the patient today was 30 minutes. This includes time spent before the visit reviewing the chart, time spent during the visit, and time spent after the visit and documentation. Patient was informed and verbally consented to the use of an ambient scribe for clinic note documentation during this visit. Orders: Orders 2 XR cervical spine 2V Today M54.2 - Cervicalgia Referrals 2 Urology Referral R10.2 - Pelvic and perineal pain Medications: New 2 nicotine 1 patch transdermal DAILY 28 ea 0RF clotrimazole 1% 1 appl topical BID 30 grams 0RF nystatin 1 appl topical DAILY 15 grams 0RF Refilled 2 gabapentin 100 mg PO BEDTIME 90 caps 0RF Discontinued 2 nicotine Discontinued Reason: Patient no longer taking 1 patch transdermal DAILY 28 ea 1RF
[2025-02-16 10:49] VITALS: BP 116/60; PULSE 70; O2SAT 98; BMI 24.9
== END 2025-02-16 11:49 | disposition home or self-care (01) ==
LOC: HO.HMCH 10:41
DX: F17.200 Nicotine dependence, unspecified, uncomplicated (principal); I71.20 Thoracic aortic aneurysm, without rupture, unspecified; N26.1 Atrophy of kidney (terminal); R20.0 Anesthesia of skin; R20.2 Paresthesia of skin; M54.10 Radiculopathy, site unspecified; M54.2 Cervicalgia; R10.2 Pelvic and perineal pain; B35.6 Tinea cruris; Z00.00 Encounter for general adult medical examination without abnormal findings

== ENCOUNTER 2025-04-05 11:45 | Outpatient (AMB) | payer OTHER, SELFPAY ==
--- NOTE | 2025-04-05 11:38 | MHC.OFFVIS ---
Intake Visit Reasons: Pelvic and Perineal pain Intake Note: New Patient is present for pelvic and perineal pain Urology Rx:none Blood Thinners:aspirin Imaging completed: NM RENAL SCAN 09/16/24, Abd/Pelvic CT 08/08/24 Sous Chef Kitchen Manager Required: No Accompanied by: Self / Same As Patient Allergies No Known Allergies Allergy (Verified 04/05/25 11:39) HPI Comments Details: Gerson is a pleasant male. He is a patient of . He is seen for the following urologic conditions - right groin pain - atrophic right kidney Atrophic right kidney discovered incidentally on imaging studies Lasix renogram confirms no function Reassurance provided Underwent right inguinal hernia repair in October Has had right inguinal pain and alteration to sensation of scrotum as well as right inner thigh Discussed anatomic issues regarding ilioinguinal nerve and hernia repair It can often have traction injury that may take 12-18 months to fully resolve On exam had tendinous at rectus insertion on right inguinal area Recommended myofascial release therapy which was demonstrated P.r.n. follow-up [facility] Medical History Smoker Right inguinal hernia Surgical History History of right inguinal hernia repair (11/16/24) Hx of toe surgery Family History Father Non-Hodgkin lymphoma Mother No problems noted. 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 Cognitive needs: No Hearing needs: No Vision needs: No Review of Systems Const Denies chills and Denies fever(s) Card Reports no additional complaints and Denies syncope Resp Denies cough GI Denies abdominal pain and Denies heartburn Reports as per HPI and Denies change in libido Neuro Denies syncope Psych Denies change in libido Endo Denies change in libido Physical Exam Const General: cooperative, healthy appearing, comfortable and no acute distress Orientation/consciousness: patient oriented x3 HEENT Face and sinus: Yes normal facial exam Mouth: moist mucous membranes Neck Neck: Yes normal visual inspection, Yes full ROM and Yes trachea midline Chest Chest palpation & inspection: normal inspection of the chest Resp Effort & Inspection: normal respiratory effort, able to speak in complete sentences and no respiratory distress GI Inspection: Yes normal to inspection Back/Spine/Pelvis Cervical Spine: normal cervical lordosis Thoracic/Lumbar Spine: thoracic and lumbar spine normal to inspection Skin General skin exam: no rashes or lesions noted Neuro General: patient oriented x3, gait normal, tone normal and moves all extremities Extrem General: Yes normal to inspection and Yes capillary refill normal Results AMB Urinalysis, Automated UA Leukoctes 0 Riky/uL Last Edit by Rocio Kenney [facility] on 04/05/25 11:50 UA Nitrite Negative Last Edit by Rocio Kenney [facility] on 04/05/25 11:50 UA Urobilinogen 0.2 mg/dL Last Edit by Rocio Kenney [facility] on 04/05/25 11:50 UA Protein 15 mg/dL Last Edit by Rocio Kenney [facility] on 04/05/25 11:50 UA pH 6.0 Last Edit by Rocio Kneney [facility] on 04/05/25 11:50 UA Blood 0 Carlos/uL Last Edit by Rocio Kenney [facility] on 04/05/25 11:50 UA Specific [place] 1.020 Last Edit by Rocio Kenney [facility] on 04/05/25 11:50 UA Ketone Negative Last Edit by Rocio Kenney [facility] on 04/05/25 11:50 UA Bilirubin 0 mg/dL Last Edit by Rocio Kenney [facility] on 04/05/25 11:50 UA Glucose 0 mg/dL Last Edit by Rocio Kenney [facility] on 04/05/25 11:50 Results Reviewed Results Reviewed: Laboratory Last Values Urine pH (Auto) 6.0 04/05/25 11:49 Specific [place] (Auto) 1.020 04/05/25 11:49 Urine Protein (Auto) 15 mg/dL 04/05/25 11:49 Glucose (UA)(Auto) 0 mg/dL 04/05/25 11:49 Urine Ketones (Auto) Negative 04/05/25 11:49 Urine Blood (Auto) 0 Carlos/uL 04/05/25 11:49 Urine Nitrite (Auto) Negative 04/05/25 11:49 Urine Bilirubin (Auto) 0 mg/dL 04/05/25 11:49 Urine Urobilinogen (Auto) 0.2 mg/dL 04/05/25 11:49 Leukocyte Esterase (Auto) 0 Riky/uL 04/05/25 11:49 Assessment & Plan Assessment & Plan (1) Atrophy of right kidney: Code(s): N26.1 - Atrophy of kidney (terminal) Category: Medical (2) Ilioinguinal neuralgia of right side: Code(s): G57.91 - Unspecified mononeuropathy of right lower limb Category: Medical Plan Reassurance provided Myofascial release exercises for ilioinguinal disruption demonstrated Patient Instructions: This note is constructed using voice recognition software. While every effort has been made to ensure accuracy transaction coordinator errors may have been included. Imaging studies, laboratory and physical exam results were discussed and reviewed in detail. No major barriers to patient understanding were identified. An opportunity to ask questions regarding the treatment plan was provided. All questions were answered. The patient expressed understanding and agreement with the above treatment plan. The patient is aware they should contact our office by phone for worsening of their current condition or the appearance of new urologic symptoms. Compliance is encouraged with any medications and followup testing that is ordered. It is a privilege to participate in the urologic care of your patient. If you have any questions or concerns regarding treatment for the above conditions, or other urologic issues, please do not hesitate to contact me. The office telephone contact is [phone]. Sincerely, Dr Jonathan Crook MD, [facility] - Urology Compassionate Specialist Care for the Genitourinary System Coding Level of Care Code New Pt Level 3 (03033) Diagnoses Atrophy of right kidney N26.1 Ilioinguinal neuralgia of right side G57.91
--- OUTSIDE RECORDS SUMMARY | 2025-04-05 14:30 | XMS_ITS | Encounter Summary ---
Author Organization [facility] Address [address] [place] [address] Care Team Providers Care Naphthalene Operator Name Role Phone Mick Rebolledo MD Primary Care Provider Unavail able Encounter Details Date Type Department Care Team (Late st Contact Info) Description 11/12/2022 Scanned Document [facility] Department of Internal Medicine [place] [address] [place] [id number] Yvette Woods APRN [address] [place] [address] [phone] Social History Tobacco Use Types Packs/Day Years [...] on filedocumented in this encounter Care Teams Naphthalene Operator Relationship Specialty Start Date End Date Mick Rebolledo MD PCP - General documented as of this encounter
--- OUTSIDE RECORDS SUMMARY | 2025-04-05 14:30 | XMS_ITS | Clinical Summary ---
Author Organization [facility] Address [address] [place] [id number] Phone Care Team Providers Care Sausage Tier Name Role Phone Mick Rebolledo MD Primary [...] VACCINE (#1) 2024 COVID-19 VACCINE (1 - 2024-2 6 season) 2025 HEPATITIS A VACCINES Aged Out No long [...] Devices Not on file [facility] [address] [place] [id number] H[facility] Member Subscriber Plan / Payer (Ef fective 2021-Present) Name:Gerson Christian Relation to Subscriber:Self Name:Gerson Christian Payer ID:Not on file Type:[facility] Address: [place] [id number] Care Teams Sausage Tier Relationship Specialty Start Date End Date Mick Rebolledo MD [address] [facility] [place] [address] PCP - General Internal Medicine 02/22/21 Additional Source Comments The information contained in this document represents components of the legal health record. It is not the complete legal health record.[facility]
--- OUTSIDE RECORDS SUMMARY | 2025-04-05 14:30 | XMS_ITS | Encounter Summary ---
Author Organization [facility] Address [address] [place] [address] Care Team Providers Care Master Motorcycle Technician Name Role Phone Mick Rebolledo MD Primary Care Provider Unavail able Encounter Details Date Type Department Care Team (Late st Contact Info) Description 11/01/2022 Scanned Document [facility] Department of Internal Medicine [place] [address] [place] [phone] Yvette Woods APRN [address] [place] [address] [phone] Social History Tobacco Use Types Packs/Day Years [...] on filedocumented in this encounter Care Teams Master Motorcycle Technician Relationship Specialty Start Date End Date Mick Rebolledo MD PCP - General documented as of this encounter
--- OUTSIDE RECORDS SUMMARY | 2025-04-05 14:30 | XMS_ITS | Encounter Summary ---
Author Organization [facility] Address [address] [place] [address] Care Team Providers Care Teaching Young Name Role Phone Mick Rebolledo MD Primary Care Provider Unavail able Encounter Details Date Type Department Care Team (Late st Contact Info) Description 12/05/2022 Scanned Document [facility] Department of Internal Medicine [place] [address] [place] [phone] Yvette Woods APRN [address] [place] [address] [phone] Social History Tobacco Use Types Packs/Day Years [...] on filedocumented in this encounter Care Teams Teaching Young Relationship Specialty Start Date End Date Mick Rebolledo MD PCP - General documented as of this encounter
--- OUTSIDE RECORDS SUMMARY | 2025-04-05 14:30 | XMS_ITS | Encounter Summary ---
Author Organization [facility]ly [facility] Address [address] [place] [address] Care Team Providers Care Stabber Name Role Phone Mick Rebolledo MD Primary Care Provider Unavail able Encounter Details Date Type Department Care Team (Late st Contact Info) Description 12/11/2022 Scanned Document [facility] Department of Internal Medicine [place] [address] [place] [address] Mick Rebolledo MD Social History Tobacco Use [...] on filedocumented in this encounter Care Teams Stabber Relationship Specialty Start Date End Date Mick Rebolledo MD PCP - General documented as of this encounter
--- OUTSIDE RECORDS SUMMARY | 2025-04-05 14:30 | XMS_ITS | Encounter Summary ---
Author Organization [facility] Address [address] [place] [address] Care Team Providers Care Laryngologist Name Role Phone Mick Rebolledo MD Primary Care Provider Unavail able Encounter Details Date Type Department Care Team (Late st Contact Info) Description 10/10/2022 Scanned Document [facility] Department of Internal Medicine [place] [address] [place] [address] Mick Rebolledo MD Social History Tobacco Use [...] on filedocumented in this encounter Care Teams Laryngologist Relationship Specialty Start Date End Date Mick Rebolledo MD PCP - General documented as of this encounter
--- OUTSIDE RECORDS SUMMARY | 2025-04-05 14:30 | XMS_ITS | Encounter Summary ---
Author Organization [facility] Address [address] [place] [address] Care Team Providers Care Book Jogger Name Role Phone Mick Rebolledo MD Primary Care Provider Unavail able Encounter Details Date Type Department Care Team (Late st Contact Info) Description 07/24/2023 Scanned Document [facility] Department of Internal Medicine [place] [address] [place] [address] Mick Rebolledo MD Social History Tobacco Use [...] on filedocumented in this encounter Care Teams Book Jogger Relationship Specialty Start Date End Date Mick Rebolledo MD PCP - General documented as of this encounter
--- OUTSIDE RECORDS SUMMARY | 2025-04-05 14:30 | XMS_ITS | Encounter Summary ---
Author Organization [facility] Address [address] [place] [address] Care Team Providers Care Exhaust And Muffler Repairer Name Role Phone Mick Rebolledo MD Primary Care Provider Unavail able Encounter Details Date Type Department Care Team (Late st Contact Info) Description 09/11/2022 Scanned Document [facility] Department of Internal Medicine [place] [address] [place] [address] Mick Rebolledo MD Social History Tobacco Use [...] on filedocumented in this encounter Care Teams Exhaust And Muffler Repairer Relationship Specialty Start Date End Date Mick Rebolledo MD PCP - General documented as of this encounter
--- OUTSIDE RECORDS SUMMARY | 2025-04-05 14:31 | XMS_ITS | Encounter Summary ---
Author Organization [facility] Address [address] [place] [address] Care Team Providers Care Top Coater Name Role Phone Mick Rebolledo MD Primary Care Provider Unavail able Encounter Details Date Type Department Care Team (Late st Contact Info) Description 07/24/2023 Scanned Document [facility] Department of Internal Medicine [place] [address] [place] [address] Mick Rebolledo MD Social History Tobacco Use [...] on filedocumented in this encounter Care Teams Top Coater Relationship Specialty Start Date End Date Mick Rebolledo MD PCP - General documented as of this encounter
--- OUTSIDE RECORDS SUMMARY | 2025-04-05 14:31 | XMS_ITS | Encounter Summary ---
Author Organization [facility] Address [address] [place] [address] Care Team Providers Care Fire Investigation Manager Name Role Phone Mick Rebolledo MD Primary Care Provider Unavail able Encounter Details Date Type Department Care Team (Late st Contact Info) Description 07/31/2023 Scanned Document [facility] Department of Internal Medicine [place] [address] [place] [address] Mick Rebolledo MD Social History Tobacco Use [...] on filedocumented in this encounter Care Teams Fire Investigation Manager Relationship Specialty Start Date End Date Mick Rebolledo MD PCP - General documented as of this encounter
--- OUTSIDE RECORDS SUMMARY | 2025-04-05 14:31 | XMS_ITS | Clinical Summary ---
Author Organization [facility] Address [address] [place] [address] Care Team Providers Care Construction Trades Contractor Name Role Phone Mick Rebolledo MD Primary [...] age to complete this topic Care Teams Construction Trades Contractor Relationship Specialty Start Date End Date Mick Rebolledo MD PCP - General Internal Medicine 01/25/20
--- OUTSIDE RECORDS SUMMARY | 2025-04-05 14:31 | XMS_ITS | Encounter Summary ---
Author Organization [facility] Address [address] [place] [address] Care Team Providers Care Scleroscope Tester Name Role Phone Mick Rebolledo MD Primary Care Provider Unavail able Encounter Details Date Type Department Care Team (Late st Contact Info) Description 08/06/2023 Scanned Document [facility] Department of Internal Medicine [place] [address] [place] [address] Mick Rebolledo MD Social History Tobacco Use [...] on filedocumented in this encounter Care Teams Scleroscope Tester Relationship Specialty Start Date End Date Mick Rebolledo MD PCP - General documented as of this encounter
--- OUTSIDE RECORDS SUMMARY | 2025-04-05 14:31 | XMS_ITS | Encounter Summary ---
Author Organization [facility] Address [address] [place] [address] Care Team Providers Care Upsetter Helper Name Role Phone Mick Rebolledo MD Primary Care Provider Unavail able Encounter Details Date Type Department Care Team (Late st Contact Info) Description 08/15/2023 Scanned Document [facility] Department of Internal Medicine [place] [address] [place] [address] Mick Rebolledo MD Social History Tobacco Use [...] on filedocumented in this encounter Care Teams Upsetter Helper Relationship Specialty Start Date End Date Mick Rebolledo MD PCP - General documented as of this encounter
--- OUTSIDE RECORDS SUMMARY | 2025-04-05 14:31 | XMS_ITS | Encounter Summary ---
Author Organization [facility] Address [address] [place] [address] Care Team Providers Care Co Founder And Chairman Name Role Phone Mick Rebolledo MD Primary Care Provider Unavail able Encounter Details Date Type Department Care Team (Late st Contact Info) Description 08/06/2023 Scanned Document [facility] Department of Internal Medicine [place] [address] [place] [address] Mick Rebolledo MD Social History Tobacco Use [...] on filedocumented in this encounter Care Teams Co Founder And Chairman Relationship Specialty Start Date End Date Mick Rebolledo MD PCP - General documented as of this encounter
--- OUTSIDE RECORDS SUMMARY | 2025-04-05 14:31 | XMS_ITS | Clinical Summary ---
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 Family History Medical History Relation Name Comments No Known Problems Brother No Known Problems Father No Known Problems Mother Relation Name Status Comments Brother Alive Father Alive Mother Alive Social History Tobacco Use Types Packs/Day Years Used Date Smoking Tobacco: Every Day Cigarettes 1 21.7 Started: 07/21/2003 Smokeless Tobacco: Never Alcohol Use [...] of 3 - 19+ 3-dose series) 2003 HPV Vaccines (1 - 3-dose SCD M series) 2011 Depression Screening 06/02/2024 COVID-19 Vaccine ( - 2023-2 5 season) 2025 Influenza Vaccine (#1) 2025 RSV Immunization Adult Patie nts (1 - 1-dose 75+ series) 2059 HIB Vaccines Aged Out No longer eligi [...] age to complete this topic Care Teams Cone Baker Machine Relationship Specialty Start Date End Date Mick Rebolledo MD [address] [address] PCP - General Internal Medicine 01/25/20
--- OUTSIDE RECORDS SUMMARY | 2025-04-05 14:31 | XMS_ITS | Encounter Summary ---
Author Organization [facility] Address [address] [place] [address] Care Team Providers Care Family Service Aide Name Role Phone Mick Rebolledo MD Primary Care Provider Unavail able Encounter Details Date Type Department Care Team (Late st Contact Info) Description 07/29/2023 Scanned Document [facility] Department of Internal Medicine [place] [address] [place] [address] Mick Rebolledo MD Social History Tobacco Use [...] on filedocumented in this encounter Care Teams Family Service Aide Relationship Specialty Start Date End Date Mick Rebolledo MD PCP - General documented as of this encounter
--- OUTSIDE RECORDS SUMMARY | 2025-04-05 14:31 | XMS_ITS | Encounter Summary ---
Author Organization [facility] Address [address] [place] [address] Care Team Providers Care Forest Resource Specialist Name Role Phone Mick Rebolledo MD Primary Care Provider Unavail able Encounter Details Date Type Department Care Team (Late st Contact Info) Description 08/15/2023 Scanned Document [facility] Department of Internal Medicine [place] [address] [place] [address] Mick Rebolledo MD Social History Tobacco Use [...] on filedocumented in this encounter Care Teams Forest Resource Specialist Relationship Specialty Start Date End Date Mick Rebolledo MD PCP - General documented as of this encounter
--- OUTSIDE RECORDS SUMMARY | 2025-04-05 14:31 | XMS_ITS | Clinical Summary ---
Author Organization [facility] Address [address] [place] [address] Care Team Providers Care Right Of Way Worker Name Role Phone Mick Rebolledo MD Primary [...] 74 07/20/2023 3:50 PM EST Temperature 36.4 C (97.6 F) 08/09/2022 10:06 AM EST Respiratory Rate - - Oxygen Saturation 96% [...] (1 of 3 - 19+ 3-dose series) 06/03 Pneumococcal Vaccine: Pediat john (0-5 Years) and At-Risk Patients (6 to 49 Years) (1 of 2 - PCV) 2003 Influenza Vaccine 12/31/2024 COVID-19 Vaccine (2023- season) 2025 HPV Vaccines (No Doses Required) Completed [place] [address] [place] [address] Worker Relationship Specialty Start Date End Date Mick Rebolledo MD PCP - General
== END 2025-04-05 12:17 | disposition home or self-care (01) ==
LOC: HO.HUSH 11:45
PROVIDERS: Visit Provider Urology
DX: N26.1 Atrophy of kidney (terminal) (principal); G57.91 Unspecified mononeuropathy of right lower limb
CPT/HCPCS: 99203